=== PATIENT | male | born 1945 | race Caucasian/White ===

== ENCOUNTER → 2016-05-02 | Outpatient (CLI) | payer OTHER ==
[~2016-05-02] MED LIST: ALBU18002 INH; ALBU1AER9 INH; ALPR-411 PO; ASPI325T45 PO; BUPRTAB PO; BUPRTAB51 PO; CIPR-255 PO; CRD4 PO; CRS/10 PO; DAPT500I IV; DOCU-94 PO; FLUT0.15 NAE; GABA-113 PO; GLIP-199 PO; HYDR-5688 PO; LEVO75TA5 PO; LOSA50TA6 PO; LOSARTAN PO; METF-384 PO; MULT-506 PO; NTRGSL/4 SL; ONDA4TAB10 SL; PHEN-775 PO; TRAM-10 PO; VTMD PO; Vitamin D2 PO; ZOCOR PO; ZOLP5TAB PO
--- NOTE | 2016-05-02 16:23 | DIAGNOSTIC IMAGING REPORT ---
RIGHT SHOULDER 3 VIEWS HISTORY: RIGHT SHOULDER PAIN Right COMPARISON: None. FINDINGS: There is no fracture or dislocation. Small amount calcification at the distal supraspinatus tendon. There is mild cartilage space narrowing at the glenohumeral joint. The right clavicle appears intact. The AC joint is well aligned. No radiopaque foreign bodies. IMPRESSION: 1. No acute fracture or dislocation within the right shoulder. 2. Supraspinatus calcific tendinitis. 3. 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 05/02/2016 4:21 PM Dictated Date/Time: 05/02/2016 4:19 PM
== END | disposition home or self-care (01) ==
LOC: C.RDSM 14:55
PROVIDERS: ATTEND Physical Medicine & Rehabilitation Sports Medicine
DX: R52 Pain, unspecified (principal)

== ENCOUNTER → 2016-06-05 | Outpatient (CLI) | payer OTHER ==
[~2016-06-05] MED LIST changes: +MAGNEVIST IV PRN
--- NOTE | 2016-06-05 12:07 | DIAGNOSTIC IMAGING REPORT ---
FLUOROSCOPIC GUIDED RIGHT SHOULDER ARTHROGRAM FLUOROSCOPY TIME: 7 seconds. A single image submitted. HISTORY: Right shoulder pain.. PROCEDURE: After obtaining written informed consent, the patient was placed supine on the fluoroscopy table. A suitable site for needle insertion was marked using fluoroscopic guidance. The right shoulder was prepped and draped in the usual sterile fashion. 1% lidocaine was used for skin, subcutaneous and deep soft tissue anesthesia. Under intermittent fluoroscopic guidance, a 22 gauge 2.5 inch spinal needle was inserted into the right glenohumeral joint. A total of 14 cc of one-to-one mixture of dilute Magnevist (0.1 cc in 10 cc saline) and Optiray 300 were injected. The needle was then removed. There were no apparent complications. The patient was transported to for further imaging. IMPRESSION: Fluoroscopic-guided right shoulder arthrogram without immediate complication. Total injected volume was 14 cc. MR portion of the examination will be dictated separately. Electronically signed by: Ignacio Najera M.D. 06/05/2016 12:06 PM Dictated Date/Time: 06/05/2016 12:05 PM
--- NOTE | 2016-06-05 13:58 | DIAGNOSTIC IMAGING REPORT ---
RIGHT SHOULDER MRI with INTRA-ARTICULAR CONTRAST HISTORY: Right shoulder pain. R SHOULDER BICIPITAL TENDONITIS Right TECHNIQUE: Multiplanar multisequence MRI of the right shoulder was performed following the intra-articular injection of contrast. COMPARISON STUDY: Right shoulder 05/02/2016. FINDINGS: Suboptimal evaluation of the right shoulder due to motion artifact. This most pronounced on the sagittal sequences. AC joint: Contrast within the joint space due to the full-thickness rotator cuff tear. The acromioclavicular joint is well aligned. Rotator cuff: The subscapularis tendon appears to be grossly intact. The teres minor tendon is also likely intact. Full-thickness tear throughout the supraspinatus tendon which demonstrates up to 1.5 cm of retraction. There is mild fatty atrophy of the supraspinatus muscle. The infraspinatus tendon is not well evaluated due to motion artifact. There is likely a partial undersurface tear involving the majority of the infraspinatus tendon. There is contrast seen within the subacromial/subdeltoid space due to the full-thickness rotator cuff tear. Labrum: Diffusely truncated and abnormal appearing labrum consistent with a circumferential tear. Biceps tendon: The long head of the biceps tendon is not well-visualized due to motion artifact but appears to be completely torn and retracted into the proximal bicipital groove. Bones: No fracture or dislocation. Cartilage: Mild cartilage thinning within the humeral head and glenoid. IMPRESSION: 1. Overall, difficult evaluation of the right shoulder due to motion artifact. 2. There is a large full-thickness tear within the supraspinatus tendon which demonstrates up to 1.5 cm of retraction. There is mild fatty atrophy of the supraspinatus muscle. 3. Probable partial undersurface tear involving the majority of the infraspinatus tendon. 4. Diffusely abnormal labrum consistent with a circumferential tear. 5. The proximal long head of the biceps tendon is not well-visualized and is likely torn and retracted into the proximal bicipital groove. Electronically signed by: Ignacio Najera M.D. 06/05/2016 1:56 PM Dictated Date/Time: 06/05/2016 1:46 PM
== END | disposition home or self-care (01) ==
LOC: C.MRIBC 10:49
PROVIDERS: ATTEND Physical Medicine & Rehabilitation Sports Medicine
DX: S46.091D Other injury of muscle(s) and tendon(s) of the rotator cuff of right shoulder, subsequent encounter (principal); X58.XXXD Exposure to other specified factors, subsequent encounter; M75.41 Impingement syndrome of right shoulder; M75.21 Bicipital tendinitis, right shoulder; S46.011A Strain of muscle(s) and tendon(s) of the rotator cuff of right shoulder, initial encounter; X58.XXXA Exposure to other specified factors, initial encounter

== ENCOUNTER → 2016-07-31 | Outpatient (CLI) | payer OTHER ==
[~2016-07-31] MED LIST changes: -MAGNEVIST IV PRN; -TRAM-10 PO; -ZOCOR PO
--- NOTE | 2016-07-31 15:12 | DIAGNOSTIC IMAGING REPORT ---
LEFT HIP UNILATERAL 2 VIEWS CLINICAL HISTORY: Bilateral hip pain. COMPARISON: None FINDINGS: Alignment of left hip is anatomic. There is no fracture or suspicious lesion. Joint space is preserved. There is mild osteophytosis. Calcific density adjacent to the greater trochanter is due to muscular insertion. IMPRESSION: 1. No acute fracture. 2. Preserved left hip joint space with mild osteophytosis. Electronically signed by: Isaías Queen M.D. 07/31/2016 3:10 PM Dictated Date/Time: 07/31/2016 3:09 PM
--- NOTE | 2016-07-31 15:13 | DIAGNOSTIC IMAGING REPORT ---
RIGHT HIP UNILATERAL 2 VIEWS CLINICAL HISTORY: Bilateral hip pain. COMPARISON: None FINDINGS: Alignment of the right hip is anatomic. There is no fracture. Joint space is preserved. There is mild osteophytosis. Calcific density adjacent to the greater trochanter is due to muscular insertion. A vague calcific density projecting inferior to the right hip joint space is of doubtful significance. Spinal hardware is partially imaged. IMPRESSION: 1. No acute fracture. 2. Preserved right hip joint space with mild osteophytosis. Electronically signed by: Isaías Queen M.D. 07/31/2016 3:11 PM Dictated Date/Time: 07/31/2016 3:10 PM
--- NOTE | 2016-07-31 15:29 | DIAGNOSTIC IMAGING REPORT ---
KUB CLINICAL HISTORY: Flank pain and hematuria. FINDINGS: 2 AP supine abdominal radiographs are obtained. No prior studies are available for comparison at the time of dictation. There is a nonobstructed abdominal bowel gas pattern noting mild to moderate colonic fecal retention. No evidence of intraperitoneal free air is seen on this supine examination. There is no radiographic evidence of nephrolithiasis. The skeletal structures are osteopenic. There is advanced lumbosacral spondylosis with evidence of L4-S1 spinal fusion. IMPRESSION: No acute abnormality is identified. There is no radiographic evidence of nephrolithiasis. Electronically signed by: Lane Sathl M.D. 07/31/2016 3:27 PM Dictated Date/Time: 07/31/2016 3:26 PM
== END | disposition home or self-care (01) ==
LOC: C.RADBC 14:24
PROVIDERS: ATTEND Physician Assistant
DX: M25.551 Pain in right hip (principal); M25.552 Pain in left hip; R10.9 Unspecified abdominal pain; R31.9 Hematuria, unspecified

== ENCOUNTER → 2016-08-09 | Outpatient (CLI) | payer OTHER ==
--- NOTE | 2016-08-09 08:01 | DIAGNOSTIC IMAGING REPORT ---
EXAMINATION: RENAL ULTRASOUND CLINICAL HISTORY: HEMATURIA COMPARISON STUDY: None FINDINGS: The right kidney measures 13 cm. The left kidney measures 12.4 cm. There is no evidence of hydronephrosis. There is a 5 mm mid pole echogenic focus possibly representing a calculus. There is a 13 mm left renal cyst versus dilated calyx. There is borderline bladder wall thickening. Bilateral renal jets were visualized. IMPRESSION : 1. Equivocal 5 mm right renal calculus 2. 13 mm left renal cyst versus dilated calyx 3. Borderline bladder wall thickening Electronically signed by: Jairo Kenny M.D. 08/09/2016 7:59 AM Dictated Date/Time: 08/09/2016 7:57 AM
== END | disposition home or self-care (01) ==
LOC: C.ULTR 06:42
PROVIDERS: ATTEND Nurse Practitioner Family
DX: R31.9 Hematuria, unspecified (principal); N20.0 Calculus of kidney; N32.9 Bladder disorder, unspecified

== ENCOUNTER → 2016-08-19 | Outpatient (CLI) | payer OTHER ==
[2016-08-19 18:44] LABS: BLOOD UREA NITROGEN 21 mg/dl (7-18); BUN/CREATININE RATIO 17.8 (10-20)
== END | disposition home or self-care (01) ==
LOC: C.LAB 17:02
PROVIDERS: ATTEND Nurse Practitioner Family
DX: R31.0 Gross hematuria (principal)

== ENCOUNTER 2016-08-20 16:12 | Emergency (ER) | payer OTHER ==
[~2016-08-20] VITALS: Ht 170.2 cm; Wt 94.7 kg
[~2016-08-20 16:12] MED LIST changes: -ALBU18002 INH; -BUPRTAB PO; -BUPRTAB51 PO; -CIPR-255 PO; -DAPT500I IV; -DOCU-94 PO; -HYDR-5688 PO; -LOSA50TA6 PO; -ONDA4TAB10 SL; -PHEN-775 PO; -VTMD PO
[2016-08-20 16:14] VITALS: TEMP 36.5; Ht 170.2 cm; Wt 94.7 kg
[2016-08-20] MEDS ORDERED: SODIUM CHLORIDE 0.9% 1000ML 1,000 ML IV STA (16:28)
[2016-08-20] MEDS ORDERED: ONDANSETRON 8 MG/54 ML D5W IV STA (16:28)
[2016-08-20] MEDS: HYDROmorphone INJ 1 MG/ML SYR IV PRN ×2 (16:51→18:09)
[2016-08-20 17:02] LABS: MANUAL MICROSCOPIC REQUIRED? NO; REVIEW REQ? NO; URINE APPEARANCE CLEAR (CLEAR); URINE BILIRUBIN NEG (NEG); URINE COLOR YELLOW; URINE EPITHELIAL CELL AUTO 0-5 /lpf (0-5); URINE NITRITE NEG (NEG); URINE SPECIFIC GRAVITY 1.021 (1.000-1.030); UROBILINOGEN NEG (NEG)
[2016-08-20 17:14] LABS: COMPLETE YES; EOS % 1.5 %; HEMATOCRIT 43.2 % (42-52); IG% 0.3 %; LYMPH % 11.9 %; LYMPH ABS # 1.19 K/uL (1.2-3.4); MEAN CELL VOLUME 96.2 fL (80-100); MEAN CORPUSCULAR HEMOGLOBIN 31.4 pg (25-34); MEAN CORPUSCULAR HGB CONC 32.6 g/dl (32-36); MONO % 8.2 %; NEUT % 78.1 %; PLATELET COUNT 241 K/uL (130-400); RED BLOOD COUNT 4.49 M/uL (4.7-6.1); WHITE BLOOD COUNT 9.98 K/uL (4.8-10.8)
[2016-08-20 17:31] LABS: ALT/SGPT 34 U/L (12-78); BLOOD UREA NITROGEN 19 mg/dl (7-18); BUN/CREATININE RATIO 13.4 (10-20); CALCIUM 9.6 mg/dl (8.5-10.1); CARBON DIOXIDE 30 mmol/L (21-32); CHLORIDE 105 mmol/L (98-107); GLUCOSE 176 mg/dl (70-99); POTASSIUM 4.6 mmol/L (3.5-5.1); SODIUM 141 mmol/L (136-145)
[2016-08-20 17:34] LABS: ALKALINE PHOSPHATASE 29 U/L (45-117); AST/SGOT 24 U/L (15-37)
--- NOTE | 2016-08-20 18:00 | DIAGNOSTIC IMAGING REPORT ---
CT OF THE ABDOMEN AND PELVIS WITHOUT CONTRAST, STONE PROTOCOL CLINICAL HISTORY: Right flank pain. COMPARISON STUDY: KUB July 31, 2016 and renal ultrasound August 09, 2016. TECHNIQUE: Helical axial images of the abdomen and pelvis were obtained without IV or oral contrast according to renal stone protocol. FINDINGS: A 7 mm right ureteropelvic junction calculus results in mild right hydronephrosis. There small bilateral renal calculi which measure up to 4 mm. There are no left ureteral calculi. The heart is mildly enlarged. Unenhanced images of the liver, spleen, adrenal glands and pancreas normal. There is extensive sigmoid diverticulosis without evidence for acute diverticulitis. There is no lymphadenopathy. There is a suspected fat-containing left inguinal hernia. No suspicious osseous lesions are present. There are post surgical findings within the spine. IMPRESSION: 1. 7 mm right ureteropelvic junction calculus which results in mild right hydronephrosis. 2. Bilateral nephrolithiasis. 3. Extensive colonic diverticulosis without evidence for acute diverticulitis. Electronically signed by: Isaías Queen M.D. 08/20/2016 5:22 PM Dictated Date/Time: 08/20/2016 5:18 PM
[2016-08-20] MEDS ORDERED: ONDANSETRON HOME PACK 4MG OD TAB PO ONE (20:00)
[2016-08-20] MEDS ORDERED: NORCO 5/325MG HOME PACK PO ONE (20:00)
[2016-08-20] MEDS ORDERED: ONDA4TAB10 SL (20:14)
[2016-08-20] MEDS ORDERED: HYDR-5688 PO (20:14)
[2016-08-20 20:22] VITALS: BP 155/87; PULSE 67; O2SAT 96
--- NOTE | 2016-08-21 00:32 | EMERGENCY ROOM VISIT NOTE ---
History Report prepared by Ervin: Audrey Rosas Under the Supervision of: Dr. Maximo Schmitz M.D. First contact with patient: 16:19 Chief Complaint: PAIN (GENERALIZED) Stated Complaint: PAIN IN RIGHT SIDE, VOMITTING History of Present Illness The patient is a 70 year old male who presents to the Emergency Room with complaints of worsening right side pain starting a few hours ago. The patient states he was driving and the pain came on suddenly. He states that he came to the ED because it continued to worsen. The patient states that he has a history of kidney stones. He notes that recently he has had blood in his urine and saw his urologist yesterday. He notes that he was scheduled for a cat scan in two days. He complains of nausea and vomiting. He rates his pain as a 6/10 in severity. Pt denies LOC, headache, fevers, chills, diaphoresis, visual changes, neck pain, chest pain, breathing difficulties, back pain, melena, hematochezia, numbness, weakness, lymphadenopathy, rash, or other complaints. The patient notes that he had a heart attack at the age of 44. He reports that they completed an angioplasty, but no stent. Source of History: patient Onset: few hours ago Position: other (right flank) Symptom Intensity: 6/10 Timing: worsening Associated Symptoms: + nausea, + urinary symptoms, + vomiting Review of Systems See HPI for pertinent positives and negatives. A total of ten systems were reviewed and were otherwise negative. Past Medical & Surgical Medical Problems: (1) CAD (coronary artery disease) (2) Diabetes (3) Idiopathic stricture of urethra (4) S/P lumbar spinal fusion (5) Urethral stricture Surgical Problems: (1) H/O angioplasty Family History No pertinent family history Social History Smoking Status: Former Smoker Marital Status: Housing Status: lives with significant other Current/Historical Medications Scheduled Aspirin (Aspirin), 325 MG PO DAILY Doxazosin Mesylate (Doxazosin Mesylate), 1 TAB PO DAILY Fluticasone Propionate (Nasal) (Flonase Allergy Relief), 1 SPRAY CHUCKY PRN Gabapentin (Neurontin), 300 MG PO BID Glipizide (Glipizide Er), 1 TAB PO BID Levothyroxine Sodium (Levothyroxine Sodium), 1 TAB PO DAILY Metformin Hcl (Glucophage), 1,000 MG PO BID Multivitamin (Multivitamin), 1 TAB PO DAILY Nitroglycerin (Nitrostat), 1 TAB SL UD Ondasetron Odt (Zofran Odt), 4 MG SL Q6H Rosuvastatin Calcium (Crestor), 1 TAB PO DAILY [Losartan], 50 MG PO DAILY [Vitamin D2], 50,000 INTER.UNIT PO WEEKLY Scheduled PRN Albuterol (Proair Hfa), 2 PUFFS INH Q4 PRN for prn Alprazolam (Xanax), 0.5 MG PO TID PRN for prn Hydrocodone/Acetaminophen 5MG/325MG (Brent 5MG/325MG), 1-2 TABS PO Q6H PRN for Pain Zolpidem Tartrate (Ambien), 10 MG PO HS PRN for Sleep Allergies Coded Allergies: Codeine (Unverified Allergy, Unknown, GI SYMPTOMS, 08/20/16) Sitagliptin (Unverified Allergy, Unknown, GI SYMPTOMS, 08/20/16) Physical Exam Vital Signs Date Time Temp Pulse Resp B/P Pulse Ox O2 Delivery O2 Flow Rate FiO2 08/20/16 20:22 67 16 155/87 96 08/20/16 18:48 66 16 116/73 97 Room Air 08/20/16 17:38 70 08/20/16 17:25 72 16 160/81 96 Room Air 08/20/16 16:14 36.5 88 20 164/84 98 Room Air Physical Exam GENERAL: Awake, alert, patient appears uncomfortable, in no distress HENT: Normocephalic, atraumatic. Oropharynx unremarkable. EYES: Normal conjunctiva. Sclera non-icteric. NECK: Supple. No nuchal rigidity. FROM. No JVD. RESPIRATORY: Clear to auscultation. CARDIAC: Regular rate, normal rhythm. Extremities warm and well perfused. Pulses equal. ABDOMEN: Soft, non-distended. RLQ tenderness to palpation. No rebound or guarding. No masses. RECTAL: Deferred. MUSCULOSKELETAL: Chest examination reveals no tenderness. The back is symmetrical on inspection without obvious abnormality. There is no CVA tenderness to palpation. No joint edema. LOWER EXTREMITIES: Calves are equal size bilaterally and non-tender. No edema. No discoloration. NEURO: Normal sensorium. No sensory or motor deficits noted. SKIN: No rash or jaundice noted. Medical Decision & Procedures ER Provider Diagnostic Interpretation: Radiology results as stated below per my review and radiologist interpretation: CT OF THE ABDOMEN AND PELVIS WITHOUT CONTRAST, STONE PROTOCOL CLINICAL HISTORY: Right flank pain. COMPARISON STUDY: KUB July 31, 2016 and renal ultrasound August 09, 2016. TECHNIQUE: Helical axial images of the abdomen and pelvis were obtained without IV or oral contrast according to renal stone protocol. FINDINGS: A 7 mm right ureteropelvic junction calculus results in mild right hydronephrosis. There small bilateral renal calculi which measure up to 4 mm. There are no left ureteral calculi. The heart is mildly enlarged. Unenhanced images of the liver, spleen, adrenal glands and pancreas normal. There is extensive sigmoid diverticulosis without evidence for acute diverticulitis. There is no lymphadenopathy. There is a suspected fat-containing left inguinal hernia. No suspicious osseous lesions are present. There are post surgical findings within the spine. IMPRESSION: 1. 7 mm right ureteropelvic junction calculus which results in mild right hydronephrosis. 2. Bilateral nephrolithiasis. 3. Extensive colonic diverticulosis without evidence for acute diverticulitis. Electronically signed by: Isaías Queen M.D. 08/20/2016 5:22 PM Dictated Date/Time: 08/20/2016 5:18 PM Laboratory Results 08/20/16 16:50 Red Blood Count 4.49, Mean Corpuscular Volume 96.2, Mean Corpuscular Hemoglobin 31.4, Mean Corpuscular Hemoglobin Concent 32.6, Mean Platelet Volume 10.0, Neutrophils (%) (Auto) 78.1, Lymphocytes (%) (Auto) 11.9, Monocytes (%) (Auto) 8.2, Eosinophils (%) (Auto) 1.5, Basophils (%) (Auto) 0.0, Neutrophils # (Auto) 7.79, Lymphocytes # (Auto) 1.19, Monocytes # (Auto) 0.82, Eosinophils # (Auto) 0.15, Basophils # (Auto) 0.00 08/20/16 16:50 Test 08/20/16 16:30 08/20/16 16:50 Urine Color YELLOW Urine Appearance CLEAR (CLEAR) Urine pH 5.0 (4.5-7.5) Urine Specific [place] 1.021 (1.000-1.030) Urine Protein NEG (NEG) Urine Glucose (UA) NEG (NEG) Urine Ketones NEG (NEG) Urine Occult Blood 3+ (NEG) Urine Nitrite NEG (NEG) Urine Bilirubin NEG (NEG) Urine Urobilinogen NEG (NEG) Urine Leukocyte Esterase NEG (NEG) Urine WBC (Auto) 1-5 /hpf (0-5) Urine RBC (Auto) 10-30 /hpf (0-4) Urine Hyaline Casts (Auto) 1-5 /lpf (0-5) Urine Epithelial Cells (Auto) 0-5 /lpf (0-5) Urine Bacteria (Auto) NEG (NEG) White Blood Count 9.98 K/uL (4.8-10.8) Red Blood Count 4.49 M/uL (4.7-6.1) Hemoglobin 14.1 g/dL (14.0-18.0) Hematocrit 43.2 % (42-52) Mean Corpuscular Volume 96.2 fL (80-100) Mean Corpuscular Hemoglobin 31.4 pg (25-34) Mean Corpuscular Hemoglobin Concent 32.6 g/dl (32-36) Platelet Count 241 K/uL (130-400) Mean Platelet Volume 10.0 fL (7.4-10.4) Neutrophils (%) (Auto) 78.1 % Lymphocytes (%) (Auto) 11.9 % Monocytes (%) (Auto) 8.2 % Eosinophils (%) (Auto) 1.5 % Basophils (%) (Auto) 0.0 % Neutrophils # (Auto) 7.79 K/uL (1.4-6.5) Lymphocytes # (Auto) 1.19 K/uL (1.2-3.4) Monocytes # (Auto) 0.82 K/uL (0.11-0.59) Eosinophils # (Auto) 0.15 K/uL (0-0.5) Basophils # (Auto) 0.00 K/uL (0-0.2) RDW Standard Deviation 46.8 fL (36.4-46.3) RDW Coefficient of Variation 13.3 % (11.5-14.5) Immature Granulocyte % (Auto) 0.3 % Immature Granulocyte # (Auto) 0.03 K/uL (0.00-0.02) Anion Gap 6.0 mmol/L (3-11) Est Creatinine Clear Calc Drug Dose 52.3 ml/min Estimated GFR () 57.8 Estimated GFR (Non- 49.8 BUN/Creatinine Ratio 13.4 (10-20) Calcium Level 9.6 mg/dl (8.5-10.1) Total Bilirubin 0.2 mg/dl (0.2-1) Direct Bilirubin < 0.1 mg/dl (0-0.2) Aspartate Amino Transf (AST/SGOT) 24 U/L (15-37) Alanine Aminotransferase (ALT/SGPT) 34 U/L (12-78) Alkaline Phosphatase 29 U/L (45-117) Total Protein 8.1 gm/dl (6.4-8.2) Albumin 4.1 gm/dl (3.4-5.0) Lipase 83 U/L (73-393) Laboratory results reviewed by me Medications Administered Medications (Trade) Dose Ordered Sig/Sherry Route Start Time Stop Time Status Last Admin Dose Admin Ondansetron HCl 8 mg 8 mg NOW STAT IV 08/20/16 16:28 08/20/16 16:30 DC 08/20/16 16:51 8 MG Sodium Chloride (Nss 1000ml) 1,000 ml @ 200 mls/hr Q5H STAT IV 08/20/16 16:28 08/20/16 20:43 DC 08/20/16 16:51 200 MLS/HR Hydromorphone HCl (Dilaudid Inj) 0.5 mg Q15M PRN IV 08/20/16 16:30 08/20/16 20:43 DC 08/20/16 18:09 0.5 MG Acetaminophen/ Hydrocodone Bitart (Brent 5/325mg Home Pack) 1 homepack UD ONCE PO 08/20/16 20:00 08/20/16 20:01 DC 08/20/16 19:59 1 HOMEPACK Ondansetron HCl (ZOFRAN ODT 4MG Home Pack) 1 homepack UD ONCE PO 08/20/16 20:00 08/20/16 20:01 DC 08/20/16 19:59 1 HOMEPACK ED Course 1625: The patient was evaluated in room A12. A complete history and physical exam was performed. 1628: Ordered NSS 1000 ml @ 200 mls/hr, Zofran 8mg IV. 1630: Ordered Dilaudid Inj 0.5 mg PRN IV pain. 1715: I reevaluated the patient and he is feeling a lot better. He states that his pain has improved. 1943: I reevaluated the patient and he is feeling better. Discussed results and discharge instructions: He verbalized understanding and agreement. The patient is ready for discharge. 1999: Ordered Ondansetron HCl 1 homepack PO, Brent 5/325 mg Home Pack 1 homepack PO. Medical Decision Triage Nursing notes reviewed. The patient's presentation and history were concerning for flank pain and hematuria. Etiologies such as renal colic, appendicitis, diverticulitis, mesenteric ischemia, aortic pathology, infections, inflammatory bowel disease, PUD, biliary pathology, UTI, as well as others were entertained. The patient was evaluated. He was mildly tender in the right lower quadrant but complained of right flank pain and hematuria. He is scheduled for CT imaging. An outpatient ultrasound suggested bladder wall thickening but also a possible calculus. The patient did request analgesia. He was given Dilaudid and Zofran. The patient was sent to CT for imaging. Blood work was obtained and sent. The patient's CBC, chem panel, LFTs, and lipase were unremarkable. Urinalysis did show hematuria but no sign of infection. CT imaging didn't show the patient has a 7 mm right-sided ureteral stone. This is the likely cause of the patient's symptoms and signs. He felt significantly better after the medication received. I discussed conservative management with close follow-up with his urologist. I gave my usual and customary discussion regarding this issue. By the evaluation outlined above other emergent etiologies such as those listed in the differential, as well as others, were deemed relatively unlikely. The patient and were informed about the findings as listed above. All questions were answered and they were pleased with the treatment. Return instructions were outlined and the patient was discharged in stable condition. The patient was referred to urology for follow-up for a recheck of the current condition. The chart was completed utilizing [employer] voice recognition software. Grammatical errors, random word insertions, pronoun errors, and incomplete sentences are an occasional consequence of this system due to software limitations, ambient noise, and hardware issues. Any formal questions or concerns about the content, text, or information contained within the body of this dictation should be directly addressed to the physician for clarification. [place] Drug Monitoring Program Search Results: no issues identified Impression Primary Impression: Kidney stone Scribe Attestation The scribe's documentation has been prepared under my direction and personally reviewed by me in its entirety. I confirm that the note above accurately reflects all work, treatment, procedures, and medical decision making performed by me. Departure Information Dispostion Home / Self-Care Prescriptions Ondasetron Odt (ZOFRAN ODT) 4 Mg Tab 4 MG SL Q6H for Nausea, #10 TAB Prov: Maximo Schmitz MD 08/20/16 Hydrocodone/Acetaminophen 5MG/325MG (Brent 5MG/325MG) Tab 1-2 TABS PO Q6H Y for Pain, #20 TAB Prov: Maximo Schmitz MD 08/20/16 Referrals Oumar Culp M.D. (PCP) Forms HOME CARE DOCUMENTATION FORM, IMPORTANT VISIT INFORMATION Patient Instructions My [facility] Additional Instructions KIDNEY STONE INSTRUCTIONS: Hydrocodone/acetaminophen 5/325mg: Take 1-2 pills every 6 hours as needed for pain. Avoid additional Acetaminophen/Tylenol, alcohol, operating machinery or dangerous equipment, working on ladders or roofs, DRIVING, or situations where being under the influence may be dangerous. It is recommended to use a stool softener such as Colace, 100mg twice daily while taking this medication to avoid constipation. Zofran 4 mg oral dissolving tablets: take one tablet and allow it to melt in your mouth every 4 hours as needed for nausea. Strain your urine and collect all the stones or debris for the urologists. Rest and avoid strenuous activity until your stone passes and symptoms resolve. Drink plenty of fluids. Return to the ER for worsening abdominal or back pain, vomiting, fevers, passing out, or as needed. Follow up with [facility] tomorrow, [phone], to arrange a visit. Tell the elementary secretary or nurse that you were in the Emergency Room and a CT scan was performed and you have a right sided 7 mm stone in the ureter, a urine tube from the kidney to the bladder. He had some blood in the urine but no signs of infection. Your kidney function and electrolytes were normal. If there are any difficulties in obtaining follow-up please call back to the emergency department at [phone] for assistance.
[2016-08-22] MEDS ORDERED: ALBU18002 INH (00:19)
[2016-08-22] MEDS ORDERED: HYDR-5688 PO (00:21)
[2016-08-22] MEDS ORDERED: LOSA50TA6 PO (00:24)
[2016-08-22] MEDS ORDERED: VTMD PO (00:26)
[2016-08-22] MEDS ORDERED: ONDA4TAB10 SL (00:27)
[2016-08-22] MEDS ORDERED: BUPRTAB51 PO (10:14)
[2016-08-22] MEDS ORDERED: DOCU-94 PO (13:06)
[2016-08-22] MEDS ORDERED: PHEN-775 PO (13:06)
[2016-08-22] MEDS ORDERED: CIPR-255 PO (13:06)
[2016-09-09] MEDS ORDERED: DAPT500I IV (16:47)
[2016-09-10] MEDS ORDERED: BUPRTAB PO (11:57)
== END 2016-08-20 20:23 | disposition home or self-care (01) ==
LOC: C.EDB 16:12 → C.EDA 20:23
DX: N20.0 Calculus of kidney (principal); R11.2 Nausea with vomiting, unspecified; I25.10 Atherosclerotic heart disease of native coronary artery without angina pectoris; I10 Essential (primary) hypertension; E11.9 Type 2 diabetes mellitus without complications; Z79.82 Long term (current) use of aspirin; Z79.84 Long term (current) use of oral hypoglycemic drugs; Z79.899 Other long term (current) drug therapy; Z87.891 Personal history of nicotine dependence; Z98.1 Arthrodesis status; Z98.62 Peripheral vascular angioplasty status

== ENCOUNTER → 2016-08-21 | Outpatient (CLI) | payer OTHER ==
[~2016-08-21] MED LIST changes: +ALBU18002 INH; +BUPRTAB PO; +BUPRTAB51 PO; +CIPR-255 PO; +DAPT500I IV; +DOCU-94 PO; +HYDR-5688 PO; +LOSA50TA6 PO; +ONDA4TAB10 SL; +PHEN-775 PO; +VTMD PO
--- NOTE | 2016-08-21 15:20 | DIAGNOSTIC IMAGING REPORT ---
CHEST 2 VIEWS ROUTINE CLINICAL HISTORY: N20.0 [id number] PREOPERATIVE CHEST COMPARISON STUDY: No previous studies for comparison. FINDINGS: The heart is at the upper limits of normal in size. There is mild aortic tortuosity/ectasia. There is no failure. There is no focal pulmonary consolidation. There are no pleural effusions.[ IMPRESSION: No active disease in the chest. Electronically signed by: Jairo Kenny M.D. 08/21/2016 3:19 PM Dictated Date/Time: 08/21/2016 3:19 PM
== END | disposition home or self-care (01) ==
LOC: C.RAD 14:55
PROVIDERS: ATTEND Nurse Practitioner Family
DX: N20.0 Calculus of kidney (principal)

== ENCOUNTER 2016-09-04 20:48 | Inpatient (IN) | payer OTHER ==
[~2016-09-04] VITALS: Ht 170.2 cm; Wt 90.7 kg
[~2016-09-04 20:48] MED LIST changes: -ALBU1AER9 INH; -BUPRTAB PO; -DAPT500I IV; -LOSARTAN PO; -PHEN-775 PO; -Vitamin D2 PO
[2016-09-04] MEDS ORDERED: ONDANSETRON INJ 2 MG/ML 2 ML VIAL IV STA ×2 (21:50→23:10)
[2016-09-04 21:59] LABS: BASO % 0.1 %; BASO ABS # 0.01 K/uL (0-0.2); COMPLETE YES; EOS % 1.1 %; HEMATOCRIT 37.3 % (42-52); IG% 0.5 %; LYMPH % 14.3 %; LYMPH ABS # 1.74 K/uL (1.2-3.4); MEAN CELL VOLUME 94.4 fL (80-100); MEAN CORPUSCULAR HEMOGLOBIN 30.9 pg (25-34); MEAN CORPUSCULAR HGB CONC 32.7 g/dl (32-36); MEAN PLATELET VOLUME 9.5 fL (7.4-10.4); MONO % 10.9 %; NEUT % 73.1 %; PLATELET COUNT 294 K/uL (130-400); RED BLOOD COUNT 3.95 M/uL (4.7-6.1); WHITE BLOOD COUNT 12.18 K/uL (4.8-10.8)
[2016-09-04 22:01] LABS: URINE APPEARANCE TURBID (CLEAR); URINE COLOR ORANGE; URINE EPITHELIAL CELL AUTO >30 /lpf (0-5); URINE NITRITE POS (NEG); URINE PH 5.5 (4.5-7.5); URINE SPECIFIC GRAVITY 1.021 (1.000-1.030); UROBILINOGEN NEG (NEG)
--- NOTE | 2016-09-04 22:02 | EMERGENCY ROOM VISIT NOTE ---
History Report prepared by Ervin: Nellie Ortiz Under the Supervision of: Dr. Titus Urena D.O. First contact with patient: 21:38 Chief Complaint: FEVER Stated Complaint: FEVER S/P LITHOTRIPSY History of Present Illness The patient is a 71 year old male who presents to the Emergency Room with complaints of an intermittent fever starting 4 days ago. He had a ureteral stent placed on August 20. The patient had a lithotripsy by Dr. Mckeon for a 7 mm kidney stone on August 23 but had been at baseline until 4 days ago. His highest temperature was 102.4 degrees Fahrenheit. He has been taking Tylenol and Aspirin with some relief. He currently complains of tiredness, generalized weakness, and nausea but denies vomiting. He has been taking Pyridium which has caused his urine to become orange but he otherwise denies any urinary symptoms. He denies any recent cough, cold, congestion, or any other complaints. Source of History: patient Onset: 4 days ago Position: other (global) Quality: other (weakness) Timing: intermittent Modifying Factors (Relieving): other (Tylenol and Aspirin with some relief) Associated Symptoms: + nausea, + weakness, No cough, No urinary symptoms, No vomiting Review of Systems See HPI for pertinent positives and negatives. A total of ten systems were reviewed and were otherwise negative. Past Medical & Surgical Medical Problems: (1) CAD (coronary artery disease) (2) Diabetes (3) Idiopathic stricture of urethra (4) S/P lumbar spinal fusion (5) Urethral stricture Surgical Problems: (1) H/O angioplasty Family History No pertinent family history Social History Smoking Status: Never Smoker Marital Status: Housing Status: lives with significant other Occupation Status: retired Current/Historical Medications Scheduled Aspirin (Aspirin), 325 MG PO DAILY Bupropion (Wellbutrin-Xl), 300 MG PO BID Docusate Sodium (Colace), 1 CAP PO BID Doxazosin Mesylate (Doxazosin Mesylate), 4 MG PO DAILY Ergocalciferol (Vitamin D), 50,000 INTER.UNIT PO WK Fluticasone Propionate (Nasal) (Flonase Allergy Relief), 1 SPRAY CHUCKY PRN Gabapentin (Neurontin), 300 MG PO BID Glipizide (Glipizide Er), 10 MG PO BID Levothyroxine Sodium (Levothyroxine Sodium), 75 MCG PO DAILY Losartan Potassium (Cozaar), 50 MG PO DAILY Metformin Hcl (Glucophage), 1,000 MG PO BID Multivitamin (Multivitamin), 1 TAB PO DAILY Nitroglycerin (Nitrostat), 1 TAB SL UD Rosuvastatin Calcium (Crestor), 10 MG PO DAILY Zolpidem Tartrate (Ambien), 10 MG PO HS Scheduled PRN Albuterol Sulfate (Proair Respiclick), 2 PUFF INH Q4 PRN for Shortness of Breath Alprazolam (Xanax), 0.5 MG PO TID PRN for prn Hydrocodone/Acetaminophen 5MG/325MG ([place] 5MG/325MG), 1-2 TABLETS PO Q6 PRN for Pain Ondasetron Odt (Zofran Odt), 4 MG SL Q6H PRN for Nausea or Vomiting Allergies Coded Allergies: Codeine (Unverified Allergy, Unknown, GI SYMPTOMS, 08/22/16) Sitagliptin (Unverified Allergy, Unknown, GI SYMPTOMS, 08/22/16) Physical Exam Vital Signs Date Time Temp Pulse Resp B/P Pulse Ox O2 Delivery O2 Flow Rate FiO2 09/04/16 23:08 102/60 94 Room Air 09/04/16 22:45 91 20 09/04/16 22:26 95 09/04/16 22:17 97 Room Air 09/04/16 20:57 37.7 114 20 128/72 93 Room Air Physical Exam GENERAL: Awake, alert, well-appearing, in no distress HENT: Normocephalic, atraumatic. Oropharynx unremarkable. EYES: Normal conjunctiva. Sclera non-icteric. NECK: Supple. No nuchal rigidity. FROM. No JVD. RESPIRATORY: Clear to auscultation. CARDIAC: Regular rate, normal rhythm. Extremities warm and well perfused. Pulses equal. ABDOMEN: Soft, non-distended. No tenderness to palpation. No rebound or guarding. No masses. RECTAL: Deferred. MUSCULOSKELETAL: Chest examination reveals no tenderness. The back is symmetrical on inspection without obvious abnormality. There is no CVA tenderness to palpation. No joint edema. LOWER EXTREMITIES: Calves are equal size bilaterally and non-tender. No edema. No discoloration. NEURO: Normal sensorium. No sensory or motor deficits noted. SKIN: No rash or jaundice noted. Medical Decision & Procedures ER Provider Diagnostic Interpretation: CT: Radiology results as stated below per my review and radiologist interpretation CT ABDOMEN AND PELVIS Comparison 08/20. Interval placement of double-J right sided ureteral stent. The obstructive right proximal ureteral stone seen on the previous examination is no longer identified. Nonobstructive bilateral renal stones. No ureteral calculus is seen on the current examination. No hydronephrosis is seen. Nonspecific bilateral perinephric infiltration. No interval infiltrate is seen at lung bases. Suspected atelectasis and/or scar. Hiatal hernia again noted. No evidence for appendicitis. Diverticulosis without diverticulitis, postop changes of the spine, old granulomatous disease and other unchanged incidental findings. Radiologist: Naveen Gaming MD Laboratory Results 09/04/16 21:32 Red Blood Count 3.95, Mean Corpuscular Volume 94.4, Mean Corpuscular Hemoglobin 30.9, Mean Corpuscular Hemoglobin Concent 32.7, Mean Platelet Volume 9.5, Neutrophils (%) (Auto) 73.1, Lymphocytes (%) (Auto) 14.3, Monocytes (%) (Auto) 10.9, Eosinophils (%) (Auto) 1.1, Basophils (%) (Auto) 0.1, Neutrophils # (Auto ) 8.90, Lymphocytes # (Auto) 1.74, Monocytes # (Auto) 1.33, Eosinophils # (Auto ) 0.14, Basophils # (Auto) 0.01 09/04/16 21:32 Test 09/04/16 21:30 09/04/16 21:32 09/04/16 22:19 Urine Color ORANGE Urine Appearance TURBID (CLEAR) Urine pH 5.5 (4.5-7.5) Urine Specific [place] 1.021 (1.000-1.030) Urine Protein 2+ (NEG) Urine Glucose (UA) NEG (NEG) Urine Ketones NEG (NEG) Urine Occult Blood 3+ (NEG) Urine Nitrite POS (NEG) Urine Bilirubin 1+ (NEG) Urine Urobilinogen NEG (NEG) Urine Leukocyte Esterase LARGE (NEG) Urine WBC (Auto) >30 /hpf (0-5) Urine RBC (Auto) >30 /hpf (0-4) Urine Hyaline Casts (Auto) 5-10 /lpf (0-5) Urine Epithelial Cells (Auto) >30 /lpf (0-5) Urine Bacteria (Auto) 1+ (NEG) Urine Pathogenic Casts 0-3 GRANULAR CASTS /lpf (0) Urine Yeast (Auto) PRESENT (NONE PRSENT) White Blood Count 12.18 K/uL (4.8-10.8) Red Blood Count 3.95 M/uL (4.7-6.1) Hemoglobin 12.2 g/dL (14.0-18.0) Hematocrit 37.3 % (42-52) Mean Corpuscular Volume 94.4 fL (80-100) Mean Corpuscular Hemoglobin 30.9 pg (25-34) Mean Corpuscular Hemoglobin Concent 32.7 g/dl (32-36) Platelet Count 294 K/uL (130-400) Mean Platelet Volume 9.5 fL (7.4-10.4) Neutrophils (%) (Auto) 73.1 % Lymphocytes (%) (Auto) 14.3 % Monocytes (%) (Auto) 10.9 % Eosinophils (%) (Auto) 1.1 % Basophils (%) (Auto) 0.1 % Neutrophils # (Auto) 8.90 K/uL (1.4-6.5) Lymphocytes # (Auto) 1.74 K/uL (1.2-3.4) Monocytes # (Auto) 1.33 K/uL (0.11-0.59) Eosinophils # (Auto) 0.14 K/uL (0-0.5) Basophils # (Auto) 0.01 K/uL (0-0.2) RDW Standard Deviation 45.1 fL (36.4-46.3) RDW Coefficient of Variation 12.8 % (11.5-14.5) Immature Granulocyte % (Auto) 0.5 % Immature Granulocyte # (Auto) 0.06 K/uL (0.00-0.02) Anion Gap 7.0 mmol/L (3-11) Est Creatinine Clear Calc Drug Dose 44.2 ml/min Estimated GFR () 48.8 Estimated GFR (Non- 42.1 BUN/Creatinine Ratio 13.8 (10-20) Calcium Level 9.7 mg/dl (8.5-10.1) Total Bilirubin 0.3 mg/dl (0.2-1) Direct Bilirubin 0.1 mg/dl (0-0.2) Aspartate Amino Transf (AST/SGOT) 19 U/L (15-37) Alanine Aminotransferase (ALT/SGPT) 22 U/L (12-78) Alkaline Phosphatase 32 U/L (45-117) Total Protein 8.3 gm/dl (6.4-8.2) Albumin 3.3 gm/dl (3.4-5.0) Bedside Lactic Acid Venous 1.94 mmol/L (0.90-1.70) Laboratory results reviewed by me Medications Administered Medications (Trade) Dose Ordered Sig/Sherry Route Start Time Stop Time Status Last Admin Dose Admin Ondansetron HCl (Zofran Inj) 4 mg NOW STAT IV 09/04/16 21:50 09/04/16 21:51 DC 09/04/16 22:32 4 MG Ceftriaxone Sodium (Rocephin Inj) 1 gm NOW STAT IV 09/04/16 22:27 09/04/16 22:28 DC 09/04/16 22:32 1 GM Ondansetron HCl (Zofran Inj) 4 mg NOW STAT IV 09/04/16 23:10 09/04/16 23:11 DC 09/04/16 23:14 4 MG ECG Indication: other (fever) Rate (beats per minute): 99 Rhythm: sinus rhythm Findings: no acute ischemic change, left axis deviation ED Course 2137: The patient was evaluated in room C02B. A complete history and physical exam was performed. 2150: Zofran Inj 4 mg IV 2257: Rocephin Inj 1 gm IV 2310: Zofran Inj 4 mg IV 0008: I discussed the patient's case with Dr. Ying, from [facility]. 0010: I reevaluated the patient. His heart rate has decreased. The patient is not in septic shock. I discussed the test results and treatment plan with the patient. The patient will be evaluated for further management. Medical Decision Differential diagnosis includes but is not limited to UTI, ureteral lithiasis, pyelonephritis, early sepsis, metabolic derangement, viral syndrome Patient started on IV fluids IV Zofran IV Rocephin. Patient underwent CT imaging. Patient is exhibiting Sirs but no evidence of septic shock. Patient will be admitted to the hospitalist for further evaluation of urinary tract infection. I discussed the workup with the patient and the patient's at bedside. Consults Time Called: [phone]. Consulting Physician: Dr. Ying, from [facility] Returned Call: [phone] I discussed the patient's case with Dr. Ying, from [facility]. Impression Primary Impression: UTI (urinary tract infection) Additional Impression: SIRS (systemic inflammatory response syndrome) Scribe Attestation The scribe's documentation has been prepared under my direction and personally reviewed by me in its entirety. I confirm that the note above accurately reflects all work, treatment, procedures, and medical decision making performed by me. Departure Information Dispostion Being Evaluated By Hospitalist Referrals Oumar Culp M.D. (PCP) Patient Instructions [facility] Problem Qualifiers Primary Impression: UTI (urinary tract infection) Encounter type: initial encounter
[2016-09-04 22:06] LABS: BUN/CREATININE RATIO 13.8 (10-20); CREATININE 1.6 mg/dl (0.60-1.40); POTASSIUM 4.7 mmol/L (3.5-5.1)
[2016-09-04 22:10] LABS: MANUAL MICROSCOPIC REQUIRED? NO; REVIEW REQ? YES; URINE BILIRUBIN 1+ (NEG)
[2016-09-04 22:17] LABS: CALCIUM 9.7 mg/dl (8.5-10.1)
[2016-09-04 22:22] LABS: URINE PATH CASTS 0-3 GRANULAR CASTS /lpf (0)
[2016-09-04] MEDS ORDERED: CEFTRIAXONE SOD INJ 1 GM ADDVIAL IV STA (22:27)
[2016-09-05] VITALS (8 sets, daily range): BP systolic 122–162; BP diastolic 71–80; PULSE 86–104; TEMP 37.1–37.7; O2SAT 94–98; BMI 31.3
[2016-09-05] MEDS ORDERED: ACETAMINOPHEN IV 100 ML IV PRN (00:45)
[2016-09-05] MEDS ORDERED: MoRPHine SULFATE 2 MG/ML CARP IV PRN (00:45)
[2016-09-05] MEDS ORDERED: HYDROCODONE/ACETAMOPHEN 5/325MG TAB PO PRN (00:45)
[2016-09-05] MEDS ORDERED: ONDANSETRON INJ 2 MG/ML 2 ML VIAL IV PRN (00:45)
[2016-09-05] MEDS ORDERED: MoRPHine SULFATE 4 MG/ML 1 ML CARP\\VIAL IV PRN (00:45)
[2016-09-05] MEDS ORDERED: GLUCOSE 10 TABS/TUBE PO PRN ×2 (00:45)
[2016-09-05] MEDS ORDERED: NITROGLYCERIN 0.4 MG SL PER TAB CHARGE SL SCH (00:45)
[2016-09-05] MEDS ORDERED: DEXTROSE 50% 50 ML SYR IV PRN ×2 (00:45)
[2016-09-05] MEDS ORDERED: GLUCOSE 40% GEL 15 GM TUBE PO PRN ×2 (00:45)
[2016-09-05] MEDS ORDERED: ZOLPIDEM TARTRATE 5 MG TAB PO PRN (00:45)
[2016-09-05] MEDS ORDERED: GLUCAGON FOR INJ 1 MG VIAL SQ PRN ×2 (00:45)
[2016-09-05] MEDS: SODIUM CHLORIDE 0.9% 1000ML 1,000 ML IV SCH ×3 (02:07→21:13)
[2016-09-05] MEDS: LEVOTHYROXINE 75 MCG TAB PO SCH (05:58)
--- NOTE | 2016-09-05 06:10 | History and Physical ---
History & Physical Date & Time of Service: September 05, 2016 at 06:00 Chief Complaint: Sirs, Uti Primary Care Physician: Oumar Culp M.D. History of Present Illness Source: patient The patient is a 71-year-old male who presents emergency department with intermittent fever that began 4 days prior to arrival. He is status post right ureteral stent placement on August 20 and then lithotripsy by Dr. Mckeon for a 7 mm kidney stone on August 23. He had been doing well post-procedures until 4 days ago when he developed temperatures that went as high as 102.4F. Tylenol and aspirin have given him some relief. He feels generally weak and tired, has nausea but no vomiting. He has been taking Pyridium which made his urine turning orange, but reports while in the emergency department tonight he began have blood in his urine. He does take aspirin daily, and reports taking 2 aspirin and Tylenol for temperature relief prior to presenting to the emergency department tonight. Past Medical/Surgical History Medical Problems: (1) CAD (coronary artery disease) Status: Chronic (2) Diabetes Status: Chronic (3) Idiopathic stricture of urethra Status: Chronic Surgical Problems: (1) H/O angioplasty Status: Resolved Family History No pertinent family history Social History Smoking Status: Unknown if Ever Smoked Smokeless Tobacco Use: No Alcohol Use: none Drug Use: none Marital Status: Housing status: lives with family Occupational Status: retired Multi-Drug Resistant Organisms History of MDRO: No Allergies Coded Allergies: Codeine (Unverified Allergy, Unknown, GI SYMPTOMS, 08/22/16) Sitagliptin (Unverified Allergy, Unknown, GI SYMPTOMS, 08/22/16) Home Medications Scheduled Aspirin (Aspirin), 325 MG PO DAILY Bupropion (Wellbutrin-Xl), 300 MG PO BID Docusate Sodium (Colace), 1 CAP PO BID Doxazosin Mesylate (Doxazosin Mesylate), 4 MG PO DAILY Ergocalciferol (Vitamin D), 50,000 INTER.UNIT PO WK Fluticasone Propionate (Nasal) (Flonase Allergy Relief), 1 SPRAY CHUCKY PRN Gabapentin (Neurontin), 300 MG PO BID Glipizide (Glipizide Er), 10 MG PO BID Levothyroxine Sodium (Levothyroxine Sodium), 75 MCG PO DAILY Losartan Potassium (Cozaar), 50 MG PO DAILY Metformin Hcl (Glucophage), 1,000 MG PO BID Multivitamin (Multivitamin), 1 TAB PO DAILY Nitroglycerin (Nitrostat), 1 TAB SL UD Rosuvastatin Calcium (Crestor), 10 MG PO DAILY Zolpidem Tartrate (Ambien), 10 MG PO HS Scheduled PRN Albuterol Sulfate (Proair Respiclick), 2 PUFF INH Q4 PRN for Shortness of Breath Alprazolam (Xanax), 0.5 MG PO TID PRN for prn Hydrocodone/Acetaminophen 5MG/325MG ([place] 5MG/325MG), 1-2 TABLETS PO Q6 PRN for Pain Ondasetron Odt (Zofran Odt), 4 MG SL Q6H PRN for Nausea or Vomiting Review of Systems The patient denies chest pain, palpitations, shortness of breath, cough, lower extremity swelling, vision change, hearing change, sore throat, weight change, vomiting, abdominal pain, pelvic pain, blood in stool, dysuria, urinary frequency or urgency, lightheadedness, dizziness, headache, memory loss, rash, abnormal bruising , imbalance, focal or generalized weakness, numbness or tingling in arms or legs, arthralgias or myalgias, back or neck pain, or allergy symptoms. The review of systems is otherwise negative other than for that already noted above, and at least 10 systems have been reviewed. Physical Exam Vital Signs Date Time Temp Pulse Resp B/P Pulse Ox O2 Delivery O2 Flow Rate FiO2 09/05/16 02:16 37.3 86 16 126/78 96 Room Air 09/05/16 01:50 Room Air 09/05/16 01:30 80 18 97 Room Air 09/04/16 23:13 86 16 09/04/16 23:08 102/60 94 Room Air 09/04/16 22:45 91 20 09/04/16 22:26 95 09/04/16 22:17 97 Room Air 09/04/16 20:57 37.7 114 20 128/72 93 Room Air The patient is awake, well-developed and adequately nourished, alert and oriented 3, normocephalic and atraumatic, lying in bed and in no acute distress. HEENT--PERRL, EOMI, mucous membranes and oropharynx dry. Neck--supple, no JVD or bruits, thyroid normal, trachea midline, no adenopathy. Heart--normal S1 and S2, no extra beats, no murmurs, rubs or gallops. Lungs--clear bilaterally with good air movement, no respiratory distress, no accessory muscle use. Abdomen--normal bowel sounds and soft, nontender and nondistended, no hernias or masses, no organomegaly, mildly obese. Extremities--no cyanosis, clubbing or edema. There are good distal pulses b/l. Dermatologic--normal skin turgor, normal color, warm and dry, no abnormal lymph nodes, no rash. Neurologic--cranial nerves II through XII grossly intact, motor and sensory examination normal. Rheumatologic--normal range of motion, nontender, muscles and joints. Psychiatric--normal affect. Diagnostics Laboratory Results Results Past 24 Hours Test 09/04/16 21:30 09/04/16 21:32 09/04/16 21:57 09/04/16 22:19 Range/Units Urine Color ORANGE Urine Appearance TURBID CLEAR Urine pH 5.5 4.5-7.5 Urine Specific [place] 1.021 1.000-1.030 Urine Protein 2+ NEG Urine Glucose (UA) NEG NEG Urine Ketones NEG NEG Urine Occult Blood 3+ NEG Urine Nitrite POS NEG Urine Bilirubin 1+ NEG Urine Urobilinogen NEG NEG Urine Leukocyte Esterase LARGE NEG Urine WBC (Auto) >30 0-5 /hpf Urine RBC (Auto) >30 0-4 /hpf Urine Hyaline Casts (Auto) 5-10 0-5 /lpf Urine Epithelial Cells (Auto) >30 0-5 /lpf Urine Bacteria (Auto) 1+ NEG Urine Pathogenic Casts 0-3 GRANULAR CASTS 0 /lpf Urine Yeast (Auto) PRESENT NONE PRSENT White Blood Count 12.18 4.8-10.8 K/uL Red Blood Count 3.95 4.7-6.1 M/uL Hemoglobin 12.2 14.0-18.0 g/dL Hematocrit 37.3 42-52 % Mean Corpuscular Volume 94.4 80-100 fL Mean Corpuscular Hemoglobin 30.9 25-34 pg Mean Corpuscular Hemoglobin Concent 32.7 32-36 g/dl Platelet Count 294 130-400 K/uL Mean Platelet Volume 9.5 7.4-10.4 fL Neutrophils (%) (Auto) 73.1 % Lymphocytes (%) (Auto) 14.3 % Monocytes (%) (Auto) 10.9 % Eosinophils (%) (Auto) 1.1 % Basophils (%) (Auto) 0.1 % Neutrophils # (Auto) 8.90 1.4-6.5 K/uL Lymphocytes # (Auto) 1.74 1.2-3.4 K/uL Monocytes # (Auto) 1.33 0.11-0.59 K/uL Eosinophils # (Auto) 0.14 0-0.5 K/uL Basophils # (Auto) 0.01 0-0.2 K/uL RDW Standard Deviation 45.1 36.4-46.3 fL RDW Coefficient of Variation 12.8 11.5-14.5 % Immature Granulocyte % (Auto) 0.5 % Immature Granulocyte # (Auto) 0.06 0.00-0.02 K/uL Sodium Level 136 136-145 mmol/L Potassium Level 4.7 3.5-5.1 mmol/L Chloride Level 100 98-107 mmol/L Carbon Dioxide Level 29 21-32 mmol/L Anion Gap 7.0 3-11 mmol/L Blood Urea Nitrogen 22 7-18 mg/dl Creatinine 1.60 0.60-1.40 mg/dl Est Creatinine Clear Calc Drug Dose 44.2 ml/min Estimated GFR () 48.8 Estimated GFR (Non- 42.1 BUN/Creatinine Ratio 13.8 10-20 Random Glucose 189 70-99 mg/dl Calcium Level 9.7 8.5-10.1 mg/dl Total Bilirubin 0.3 0.2-1 mg/dl Direct Bilirubin 0.1 0-0.2 mg/dl Aspartate Amino Transf (AST/SGOT) 19 15-37 U/L Alanine Aminotransferase (ALT/SGPT) 22 12-78 U/L Alkaline Phosphatase 32 45-117 U/L Total Protein 8.3 6.4-8.2 gm/dl Albumin 3.3 3.4-5.0 gm/dl Bedside Lactic Acid Venous 1.93 1.94 0.90-1.70 mmol/L Test 09/05/16 05:32 Range/Units Bedside Glucose 125 70-99 mg/dl Microbiology Results 09/04/16 Blood Culture, Received Pending 09/04/16 Blood Culture, Received Pending Impression Assessment and Plan UTI/SIRS,/right ureteral stent/renal insufficiency--the patient will be admitted to medical surgical floor. We'll continue ceftriaxone 1 g IV daily begun in the emergency department. We'll follow urine culture and sensitivity results. Keep nothing by mouth except meds after midnight. Consult urology. Place on normal saline with potassium chloride 20 mEq at 100 mils per hour. Acute Renal insufficiency/hypertension-hold losartan potassium 50 mg by mouth daily. Continue doxazosin 4 mg by mouth at bedtime. Place on IV fluids as above. Follow BMP and magnesium in the a.m. Diabetes mellitus--hold metformin 1000 mg by mouth twice a day. Decrease glipizide ER 10 mg by mouth twice a day to 2.5 mg by mouth twice a day. Place on Accu-Cheks before meals and at bedtime with NovoLog coverage per scale. Hypothyroidism--continue levothyroxine sodium 75 g by mouth daily. Peripheral neuropathy--continue gabapentin 300 mg by mouth twice a day. Hypercholesterolemia--continue Crestor 10 mg by mouth daily. Depression/anxiety/Insomnia--continue Wellbutrin XL 3 mg by mouth twice a day, alprazolam 0.5 mg by mouth 3 times a day when necessary, and zolpidem tartrate 10 mg by mouth at bedtime. Level of Care Med/Surg Advanced Directives Existing Advance Directive: No Existing Living Will: Yes Existing Power of Drum Printer: Yes Resuscitation Status FULL RESUSCITATION VTE Prophylaxis VTE Risk Assessment Done? Y/N: Yes Risk Level: Moderate Given or contraindicated: SCD's Social Service Consult None Apply
[2016-09-05] MEDS: ACETAMINOPHEN 325 MG TAB PO PRN ×3 (06:30→19:52)
--- NOTE | 2016-09-05 06:41 | DIAGNOSTIC IMAGING REPORT ---
CT SCAN OF THE ABDOMEN AND PELVIS WITHOUT CONTRAST CLINICAL HISTORY: Sepsis. Right nephroureteral stent. COMPARISON STUDY: 09-04 TECHNIQUE: CT scan of the abdomen and pelvis was performed from the lung bases to the proximal femurs. Images are reviewed in the axial, sagittal, and coronal planes. IV contrast was not administered for this examination. CT DOSE: 845.19 mGy.cm FINDINGS: Lower chest: There are coronary artery calcifications present. Liver: The unenhanced liver is normal in size, contour, and attenuation. There is no intrahepatic biliary ductal dilatation. Gallbladder: Unremarkable. Spleen: Normal in size and attenuation. Pancreas: Unremarkable. Adrenal glands: Unremarkable. Kidneys: There is a nonobstructing 4 mm lower pole left renal calculus. Multiple right renal calculi are visualized measuring up to 2.5 mm in diameter. There is a right-sided nephroureteral stent present. No calculi are visualized along the course of the stent. There are no bladder calculi. There is no significant hydronephrosis. Bowel: There are no transition zones indicate bowel obstruction. There is colonic diverticulosis. There are no acute peridiverticular inflammatory changes. There is no evidence of acute appendicitis. Peritoneum: There is no intraperitoneal free air or abdominal ascites. Vasculature: The abdominal aorta is normal in course and caliber. Adenopathy: None. Pelvic viscera: The bladder, and pelvic viscera are unremarkable. Skeletal structures: Postsurgical changes are present within the lumbar spine. IMPRESSION: 1. Bilateral nephrolithiasis 2. Interval placement of a right-sided nephroureteral stent 3. No evidence of bowel obstruction. No evidence of free air 4. Diverticulosis. No evidence of acute diverticulitis. 5. No evidence of acute appendicitis. Electronically signed by: Jairo Kenny M.D. 09/05/2016 6:39 AM Dictated Date/Time: 09/05/2016 6:35 AM
[2016-09-05] MEDS ORDERED: INSULIN ASPART 100 UNITS/ML 3 ML PEN SC SCH (07:00)
[2016-09-05] MEDS ORDERED: FLUTICASONE PROPIONATE NA SPR 16 GM BTL NAE PRN (08:00)
[2016-09-05] MEDS: GABAPENTIN 300 MG CAP PO SCH ×2 (08:57→19:51)
[2016-09-05] MEDS: BuPROPion XL 300 MG TABCR PO SCH ×2 (08:58→19:52)
[2016-09-05] MEDS: DOXAZosin MESYLATE TAB 4 MG TAB PO SCH (08:58)
[2016-09-05] MEDS: DOCUSATE SODIUM 100 MG CAP PO SCH ×2 (08:59→19:51)
[2016-09-05] MEDS: INSULIN ASPART 100 UNITS/ML 3 ML PEN SC SCH ×4 (09:06→21:16)
--- NOTE | 2016-09-05 13:00 | Urology Consultation ---
History General Date of Service: September 05, 2016. Chief Complaint: fevers Primary Care Physician: Oumar Culp M.D. Pt seen a urologist before?: Yes (Dr. Mckeon) If yes, why?: right ureteral stone History of Present Illness 71 yo male presents to [facility] with c/o intermittent fevers, fatigue, weakness, and n/v x 5 days. He is s/p right URS/LL with dilation of urethral stricture by Dr. Mckeon on 08-22-16. He reports he has been voiding better, and had no pain since the procedure. Was doing relatively well until his fevers started 5 days ago. He reports fevers up to 102F. Scheduled for stent removal with Dr. Mckeon tomorrow. CT scan on admission shows his stent is in good position. No stone fragments noted along the course of the ureter. White count noted to be 12.18 on admission. Cr of 1.6. Temp of 37.7C this morning. Blood and urine cultures pending. He has been started on ceftriaxone. Imaging Imaging: CT Laboratory Last 24 Hours Test 09/04/16 21:30 09/04/16 21:32 09/04/16 21:57 09/04/16 22:19 Urine Color ORANGE Urine Appearance TURBID Urine pH 5.5 Urine Specific [place] 1.021 Urine Protein 2+ Urine Glucose (UA) NEG Urine Ketones NEG Urine Occult Blood 3+ Urine Nitrite POS Urine Bilirubin 1+ Urine Urobilinogen NEG Urine Leukocyte Esterase LARGE Urine WBC (Auto) >30 /hpf Urine RBC (Auto) >30 /hpf Urine Hyaline Casts (Auto) 5-10 /lpf Urine Epithelial Cells (Auto) >30 /lpf Urine Bacteria (Auto) 1+ Urine Pathogenic Casts 0-3 GRANULAR CASTS /lpf Urine Yeast (Auto) PRESENT White Blood Count 12.18 K/uL Red Blood Count 3.95 M/uL Hemoglobin 12.2 g/dL Hematocrit 37.3 % Mean Corpuscular Volume 94.4 fL Mean Corpuscular Hemoglobin 30.9 pg Mean Corpuscular Hemoglobin Concent 32.7 g/dl Platelet Count 294 K/uL Mean Platelet Volume 9.5 fL Neutrophils (%) (Auto) 73.1 % Lymphocytes (%) (Auto) 14.3 % Monocytes (%) (Auto) 10.9 % Eosinophils (%) (Auto) 1.1 % Basophils (%) (Auto) 0.1 % Neutrophils # (Auto) 8.90 K/uL Lymphocytes # (Auto) 1.74 K/uL Monocytes # (Auto) 1.33 K/uL Eosinophils # (Auto) 0.14 K/uL Basophils # (Auto) 0.01 K/uL RDW Standard Deviation 45.1 fL RDW Coefficient of Variation 12.8 % Immature Granulocyte % (Auto) 0.5 % Immature Granulocyte # (Auto) 0.06 K/uL Sodium Level 136 mmol/L Potassium Level 4.7 mmol/L Chloride Level 100 mmol/L Carbon Dioxide Level 29 mmol/L Anion Gap 7.0 mmol/L Blood Urea Nitrogen 22 mg/dl Creatinine 1.60 mg/dl Est Creatinine Clear Calc Drug Dose 44.2 ml/min Estimated GFR () 48.8 Estimated GFR (Non- 42.1 BUN/Creatinine Ratio 13.8 Random Glucose 189 mg/dl Calcium Level 9.7 mg/dl Total Bilirubin 0.3 mg/dl Direct Bilirubin 0.1 mg/dl Aspartate Amino Transf (AST/SGOT) 19 U/L Alanine Aminotransferase (ALT/SGPT) 22 U/L Alkaline Phosphatase 32 U/L Total Protein 8.3 gm/dl Albumin 3.3 gm/dl Bedside Lactic Acid Venous 1.93 mmol/L 1.94 mmol/L Test 09/05/16 05:32 09/05/16 07:30 09/05/16 11:47 Bedside Glucose 125 mg/dl 157 mg/dl 153 mg/dl Problem List Medical Problems: (1) Intractable abdominal pain Status: Acute (2) Right ureteral calculus Status: Acute (3) SIRS (systemic inflammatory response syndrome) Status: Acute (4) UTI (urinary tract infection) Status: Acute Past History coronary artery disease, diabetes, kidney stones, other (urethral sticture) Past Surgical History: angioplasty without stent (coronary artery), ureteral stent (with laser lithotripsy 08-22-16) Family History No pertinent family history Social History Hx Tobacco Use In Past Year?: No Smoking: non-smoker Alcohol: never Drug use: none Marital status: Housing status: lives with family Occupation status: retired History of MDRO No Allergies Coded Allergies: Codeine (Unverified Allergy, Unknown, GI SYMPTOMS, 08/22/16) Sitagliptin (Unverified Allergy, Unknown, GI SYMPTOMS, 08/22/16) Medications Home Medications: Home Meds and Scripts Medications Dose Route/Sig Max Daily Dose Days Date Category Dose Instructions Colace (Docusate Sodium) 100 Mg Cap 1 Cap PO BID 15 08/22/16 Rx Wellbutrin-Xl (Bupropion HCl) 300 Mg Tabcr 300 Mg PO BID 08/22/16 Reported Zofran Odt (Ondansetron HCl) 4 Mg Tab 4 Mg SL Q6H PRN 08/22/16 Reported Vitamin D (Ergocalciferol) 50,000 Interunit Cap 50,000 Inter.unit PO WK 08/22/16 Reported TAKE THIS MED EVERY FRIDAY Cozaar (Losartan Potassium) 50 Mg Tab 50 Mg PO DAILY 08/22/16 Reported [place] 5MG/325MG (Acetaminophen/Hydrocodone Bitart) Tab 1-2 Tablets PO Q6 PRN 08/22/16 Reported PRN PAIN Proair Respiclick (Albuterol Sulfate) 108 Mcg/Act Aer 2 Puff INH Q4 PRN 08/22/16 Reported Crestor (Rosuvastatin Calcium) 10 Mg Tab 10 Mg PO DAILY 06/10/16 Reported Ambien (Zolpidem Tartrate) 5 Mg Tab 10 Mg PO HS 08/11/15 Reported Nitrostat (Nitroglycerin) 0.4 Mg Tab 1 Tab SL UD 08/11/15 Reported Multivitamin (Multivitamins) Tab 1 Tab PO DAILY 08/11/15 Reported Glucophage (Metformin Hcl) 1,000 Mg Tab 1,000 Mg PO BID 08/11/15 Reported Levothyroxine Sodium 75 Mcg Tab 75 Mcg PO DAILY 08/11/15 Reported Glipizide Er (Glipizide) 10 Mg Tab 10 Mg PO BID 08/11/15 Reported Neurontin (Gabapentin) 300 Mg Cap 300 Mg PO BID 08/11/15 Reported Flonase Allergy Relief (Fluticasone Propionate (Nasal)) 50 Mcg/Act Spr 1 Rankin CHUCKY PRN 08/11/15 Reported Doxazosin Mesylate 4 Mg Tab 4 Mg PO DAILY 08/11/15 Reported Aspirin 325 Mg Tab 325 Mg PO DAILY 08/11/15 Reported Xanax (Alprazolam) 0.5 Mg Tab 0.5 Mg PO TID PRN 08/11/15 Reported Inpatient Medications: Current Inpatient Medications Medications (Trade) Dose Ordered Sig/Sherry Route Start Time Stop Time Status Last Admin Dose Admin Acetaminophen (Tylenol Tab) 650 mg Q4H PRN PO 09/05/16 00:45 10/05/16 00:44 09/05/16 06:30 650 MG Zolpidem Tartrate (Ambien Tab) 5 mg HSZ PRN PO 09/05/16 00:45 10/05/16 00:44 09/05/16 02:12 5 MG Ondansetron HCl (Zofran Inj) 4 mg Q6H PRN IV 09/05/16 00:45 10/05/16 00:44 Insulin Aspart (novoLOG ASPART) SLIDING SCALE If C... ACHS SC 09/05/16 06:30 10/05/16 06:59 09/05/16 09:06 1 UNITS Glucose (Glucose Chew Tab) 1 tabs UD PRN PO 09/05/16 00:45 10/05/16 00:44 Dextrose (Dextrose 50% 50ML Syringe) 50 ml UD PRN IV 09/05/16 00:45 10/05/16 00:44 Glucagon 1 mg 1 mg UD PRN SQ 09/05/16 00:45 10/05/16 00:44 Acetaminophen (Ofirmev Iv) 100 ml @ 400 mls/hr Q8H PRN IV 09/05/16 00:45 10/05/16 00:44 Glucose (Glucose 40% Gel) UD PRN PO 09/05/16 00:45 10/05/16 00:44 Morphine Sulfate (MoRPHine SULFATE INJ) 2 mg Q2H PRN IV 09/05/16 00:45 09/19/16 00:44 Morphine Sulfate (MoRPHine SULFATE INJ) 4 mg Q2H PRN IV 09/05/16 00:45 09/19/16 00:44 Alprazolam (Xanax Tab) 0.5 mg TID PRN PO 09/05/16 00:45 10/05/16 00:44 Bupropion HCl (Wellbutrin-Xl Tab) 300 mg BID PO 09/05/16 08:00 10/05/16 08:59 09/05/16 08:58 300 MG Docusate Sodium (coLACE CAP) 100 mg BID PO 09/05/16 08:00 10/05/16 08:59 09/05/16 08:59 100 MG Doxazosin Mesylate (Cardura Tab) 4 mg DAILY PO 09/05/16 08:00 10/05/16 08:59 09/05/16 08:58 4 MG Fluticasone Propionate (Flonase Nasal Rankin) 1 sprays DAILY PRN CHUCKY 09/05/16 08:00 10/05/16 07:59 Gabapentin (Neurontin Cap) 300 mg BID PO 09/05/16 08:00 10/05/16 08:59 09/05/16 08:57 300 MG Acetaminophen/ Hydrocodone Bitart ([place] 5/325 Tab) 1 tab Q4 PRN PO 09/05/16 00:45 09/19/16 00:44 Levothyroxine Sodium (Synthroid Tab) 75 mcg DAILYBB PO 09/05/16 06:30 10/05/16 06:29 09/05/16 05:58 75 MCG Nitroglycerin (Nitrostat Tab) 0.4 mg UD SL 09/05/16 00:45 10/05/16 00:44 Glipizide 2.5 mg 2.5 mg BIDM PO 09/05/16 08:00 10/05/16 07:59 09/05/16 08:57 2.5 MG Ceftriaxone Sodium 1 gm/ Dextrose 50 ml @ 100 mls/hr Q24H IV 09/05/16 22:00 09/13/16 22:29 Sodium Chloride (Nss 1000ml) 1,000 ml @ 100 mls/hr Q10H IV 09/05/16 00:20 10/05/16 00:19 09/05/16 12:07 100 MLS/HR Review of Systems Review of Systems Constitutional: No chills, No fever Eyes: No blurred vision Neurological: No dizzy Endocrine: No excessive thirst Gastrointestinal: No abdominal pain, No nausea, No vomiting Cardiovascular: No chest pain Respiratory: No shortness of breath Skin: No rash Musculoskeletal: No joint pain Male : + blood in urine, + painful urination Physical Exam Vital Signs: Vital Signs Past 12 Hours Date Time Temp Pulse Resp B/P Pulse Ox O2 Delivery O2 Flow Rate FiO2 09/05/16 07:46 37.7 101 16 122/71 94 Room Air 09/05/16 02:16 37.3 86 16 126/78 96 Room Air 09/05/16 01:50 Room Air 09/05/16 01:30 80 18 97 Room Air Physical Exam: General Appearance: no apparent distress Eyes: bilateral eyes normal inspection ENT: hearing grossly normal Neck: no JVD Respiratory/Chest: no respiratory distress, no accessory muscle use Cardiovascular: no JVD Extremities: normal inspection Neurologic/Psychiatric: alert, normal mood/affect, oriented x 3 Skin: normal color Assessment & Plan Assessment & Plan A/P: Suspected UTI with possible sepsis s/p right URS/LL The stent remains in good position on CT scan. No surgical management planned for the pt at this time. Will provide the pt a diet today. Continue abx pending culture senstivities. Recommend treating based on sensitivities for 10-14 days. Would not remove stent tomorrow as previously planned in the setting of infection. Will plan for removal in 7-14 days after he has been treated for adequately treated for infection. Thanks for the consult. Will continue to follow along with primary service.
--- NOTE | 2016-09-05 14:09 | Progress Note ---
Subjective Date of Service: September 05, 2016. Subjective this pt is feeling much better has no issues except for some RLQ pain and gross hematuria Problem List Medical Problems: (1) Intractable abdominal pain Status: Acute (2) Right ureteral calculus Status: Acute (3) SIRS (systemic inflammatory response syndrome) Status: Acute (4) UTI (urinary tract infection) Status: Acute Review of Systems Constitutional: No chills, No fever, No weakness Respiratory: No cough, No shortness of breath Cardiac: No chest pain, No edema Abdomen: + pain, No diarrhea, No nausea, No vomiting Musculoskeletal: No joint pain, No muscle pain Objective Vital Signs Date Time Temp Pulse Resp B/P Pulse Ox O2 Delivery O2 Flow Rate FiO2 09/05/16 02:16 37.3 86 16 126/78 96 Room Air 09/05/16 01:50 Room Air 09/05/16 01:30 80 18 97 Room Air 09/04/16 23:13 86 16 09/04/16 23:08 102/60 94 Room Air 09/04/16 22:45 91 20 09/04/16 22:26 95 09/04/16 22:17 97 Room Air 09/04/16 20:57 37.7 114 20 128/72 93 Room Air Physical Exam General Appearance: WD/WN, + mild distress Neck: supple, no JVD Respiratory/Chest: chest non-tender, lungs clear, normal breath sounds Cardiovascular: regular rate, rhythm, no murmur Abdomen: normal bowel sounds, soft, + guarding, + tenderness Extremities: no pedal edema, no calf tenderness Neurologic/Psychiatric: alert, oriented x 3 Laboratory Results Last 24 Hours Test 09/04/16 21:30 09/04/16 21:32 09/04/16 21:57 09/04/16 22:19 Urine Color ORANGE Urine Appearance TURBID Urine pH 5.5 Urine Specific [place] 1.021 Urine Protein 2+ Urine Glucose (UA) NEG Urine Ketones NEG Urine Occult Blood 3+ Urine Nitrite POS Urine Bilirubin 1+ Urine Urobilinogen NEG Urine Leukocyte Esterase LARGE Urine WBC (Auto) >30 /hpf Urine RBC (Auto) >30 /hpf Urine Hyaline Casts (Auto) 5-10 /lpf Urine Epithelial Cells (Auto) >30 /lpf Urine Bacteria (Auto) 1+ Urine Pathogenic Casts 0-3 GRANULAR CASTS /lpf Urine Yeast (Auto) PRESENT White Blood Count 12.18 K/uL Red Blood Count 3.95 M/uL Hemoglobin 12.2 g/dL Hematocrit 37.3 % Mean Corpuscular Volume 94.4 fL Mean Corpuscular Hemoglobin 30.9 pg Mean Corpuscular Hemoglobin Concent 32.7 g/dl Platelet Count 294 K/uL Mean Platelet Volume 9.5 fL Neutrophils (%) (Auto) 73.1 % Lymphocytes (%) (Auto) 14.3 % Monocytes (%) (Auto) 10.9 % Eosinophils (%) (Auto) 1.1 % Basophils (%) (Auto) 0.1 % Neutrophils # (Auto) 8.90 K/uL Lymphocytes # (Auto) 1.74 K/uL Monocytes # (Auto) 1.33 K/uL Eosinophils # (Auto) 0.14 K/uL Basophils # (Auto) 0.01 K/uL RDW Standard Deviation 45.1 fL RDW Coefficient of Variation 12.8 % Immature Granulocyte % (Auto) 0.5 % Immature Granulocyte # (Auto) 0.06 K/uL Sodium Level 136 mmol/L Potassium Level 4.7 mmol/L Chloride Level 100 mmol/L Carbon Dioxide Level 29 mmol/L Anion Gap 7.0 mmol/L Blood Urea Nitrogen 22 mg/dl Creatinine 1.60 mg/dl Est Creatinine Clear Calc Drug Dose 44.2 ml/min Estimated GFR () 48.8 Estimated GFR (Non- 42.1 BUN/Creatinine Ratio 13.8 Random Glucose 189 mg/dl Calcium Level 9.7 mg/dl Total Bilirubin 0.3 mg/dl Direct Bilirubin 0.1 mg/dl Aspartate Amino Transf (AST/SGOT) 19 U/L Alanine Aminotransferase (ALT/SGPT) 22 U/L Alkaline Phosphatase 32 U/L Total Protein 8.3 gm/dl Albumin 3.3 gm/dl Bedside Lactic Acid Venous 1.93 mmol/L 1.94 mmol/L Test 09/05/16 05:32 Bedside Glucose 125 mg/dl Assessment and Plan 71 M with recent urology intervention, here with fevers UTI/SIRS,/right ureteral stent ceftriaxone 1 g IV daily begun in the emergency department. Consult urology. ivf Acute Renal failure, hypertension-hold losartan potassium 50 mg by mouth daily. Continue doxazosin 4 mg by mouth at bedtime. Diabetes mellitus--hold metformin 1000 mg by mouth twice a day. Decrease glipizide ER 10 mg by mouth twice a day to 2.5 mg by mouth twice a day. SSI Hypothyroidism-- levothyroxine sodium 75 g by mouth daily. Peripheral neuropathy- gabapentin 300 mg by mouth twice a day. Hypercholesterolemia-- Crestor 10 mg by mouth daily. Depression/anxiety/Insomnia- Wellbutrin alprazolam 0.5 mg
[2016-09-05] MEDS ORDERED: POLYETHYLENE (MIRALAX) 17 GM PACK PO ONE (17:30)
[2016-09-05] MEDS ORDERED: POLYETHYLENE (MIRALAX) 17 GM PACK ONE (17:46)
[2016-09-05] MEDS: ALPRAZOLAM 0.5 MG TAB PO PRN (19:52)
[2016-09-05] MEDS: CEFTRIAXONE SOD INJ 1 GM in DEXTROSE 5% ADD-VANTAGE 50ML 50 ML IV SCH (21:13)
[2016-09-05] MEDS: ZOLPIDEM TARTRATE 5 MG TAB PO PRN (22:52)
[2016-09-06 05:39] LABS: COMPLETE YES; EOS % 1.1 %; HEMATOCRIT 34.3 % (42-52); IG% 0.5 %; LYMPH % 10.2 %; LYMPH ABS # 1.04 K/uL (1.2-3.4); MEAN CELL VOLUME 95.5 fL (80-100); MEAN CORPUSCULAR HEMOGLOBIN 30.4 pg (25-34); MEAN CORPUSCULAR HGB CONC 31.8 g/dl (32-36); MEAN PLATELET VOLUME 9.3 fL (7.4-10.4); MONO % 11.2 %; PLATELET COUNT 254 K/uL (130-400); RED BLOOD COUNT 3.59 M/uL (4.7-6.1); WHITE BLOOD COUNT 10.17 K/uL (4.8-10.8)
[2016-09-06 06:10] LABS: BUN/CREATININE RATIO 13.2 (10-20); CALCIUM 8.6 mg/dl (8.5-10.1); CREATININE 1.2 mg/dl (0.60-1.40); POTASSIUM 4.3 mmol/L (3.5-5.1)
[2016-09-06] MEDS: SODIUM CHLORIDE 0.9% 1000ML 1,000 ML IV SCH ×2 (06:10→15:45)
[2016-09-06] MEDS: LEVOTHYROXINE 75 MCG TAB PO SCH (06:10)
[2016-09-06 07:43] VITALS: BP 132/83; PULSE 101; TEMP 37.2; O2SAT 93
--- NOTE | 2016-09-06 08:14 | Clinical Documentation Query ---
QUERY 1 OF [address] PUTNAM, In your clinical opinion is this patient being managed for: ( ) UTI due to recent ureteral stent placement ( ) Other explanation of clinical findings (Please Explain) ( xx ) Unable to determine (Please Define) ( ) Need to Discuss ( ) Not Agree The medical record reflects the following clinical findings, treatment, and risk factors. Clinical Indicators: Pt had ureteral stent placed and dilation of urethral stricture on 08/22/16. Fevers started 5 days ago (approx 08/31/16). Original plan was to remove stent on 09/06 however this will be held until 1-2 wks after pt adequately treated for UTI. Treatment: IV fluids, blood and urine cultures pending, IV rocephin, urology consult Risk Factors: ureteral stent placement, DM QUERY 2 OF 2 Since ICD 10 [id number], SIRS/UTI will not be automatically coded to sepsis from UTI. In your clinical opinion is this patient being managed for: ( ) Sepsis, POA from UTI ( ) Other explanation of clinical findings (Please Explain) ( xx) Unable to determine (Please Define) ( ) Need to Discuss ( ) Not Agree The medical record reflects the following clinical findings, treatment, and risk factors. Clinical Indicators:71 yo male presenting with intermittent fever. Reportedly max temp of 102.4 as an outpatient. VS 37.7-114-20, 128/72. Lactic acid 1.94, UA cx pending however UA LE large/WBC >30/bacterial +1. 1/2 BC prelim with gram positive cocci. WBC 12.18, Cr 1.6 Treatment:IV fluids, IV rocephin, Blood and urine cx pending, urology consult Risk Factors: suspected UTI, DM, recent ureteral stent Please clarify and document your clinical opinion in the progress notes and discharge summary. Terms such as "probable", "suspected", "likely", "questionable", "possible", or "still to be ruled out" are acceptable. IF IN AGREEMENT, YOU MUST DOCUMENT ABOVE DIAGNOSTIC STATEMENT IN DAILY PROGRESS NOTES AND DISCHARGE SUMMARY. This document is not part of the patient's record. Thank You, Felicia Grimaldo RN [phone]
[2016-09-06] MEDS ORDERED: VANCOMYCIN CONSULT ACTIVE PRN (08:15)
[2016-09-06] MEDS: POLYETHYLENE (MIRALAX) 17 GM PACK PO SCH (08:19)
[2016-09-06] MEDS: DOXAZosin MESYLATE TAB 4 MG TAB PO SCH (08:19)
[2016-09-06] MEDS: GABAPENTIN 300 MG CAP PO SCH ×2 (08:19→20:42)
[2016-09-06] MEDS: DOCUSATE SODIUM 100 MG CAP PO SCH ×2 (08:19→20:42)
[2016-09-06] MEDS: BuPROPion XL 300 MG TABCR PO SCH ×2 (08:20→20:41)
[2016-09-06] MEDS: ALPRAZOLAM 0.5 MG TAB PO PRN (08:23)
[2016-09-06] MEDS: INSULIN ASPART 100 UNITS/ML 3 ML PEN SC SCH ×4 (08:36→20:42)
[2016-09-06] MEDS ORDERED: VANCOMYCIN INJ 2,300 MG in SODIUM CHLORIDE 0.9% 500ML 500 ML IV ONE (08:45)
--- NOTE | 2016-09-06 08:50 | Pharmacy Progress Note ---
Pharmacy Abx Initial Consult Date of Service September 06, 2016. Pharmacy Dosing Scope Date of Consult: 09/06/16 Consultation requested by: Dr. Abdi Pharmacy is consulted to initiate Vancomycin IV dosing therapy, order appropriate labs and adjust drug dose/frequency. Subjective The patient is a 71 year old male admitted on September 05, 2016 at 00:42 with fever and hematuria. Objective Height (Feet): 5 Height (Inches): 7.00 Weight (Kilograms): 90.700 Vital Signs (Past 12Hrs) Vital Signs Past 12 Hours Date Time Temp Pulse Resp B/P Pulse Ox O2 Delivery O2 Flow Rate FiO2 09/06/16 07:43 37.2 101 18 132/83 93 Room Air 09/06/16 00:00 Room Air 09/05/16 23:50 37.1 95 16 132/79 97 Room Air 09/05/16 21:10 94 144/80 Lab Results (24Hrs) Test 09/05/16 19:45 09/06/16 05:22 09/06/16 07:55 Bedside Glucose 206 mg/dl (70-99) 133 mg/dl (70-99) White Blood Count 10.17 K/uL (4.8-10.8) Red Blood Count 3.59 M/uL (4.7-6.1) Hemoglobin 10.9 g/dL (14.0-18.0) Hematocrit 34.3 % (42-52) Mean Corpuscular Volume 95.5 fL (80-100) Mean Corpuscular Hemoglobin 30.4 pg (25-34) Mean Corpuscular Hemoglobin Concent 31.8 g/dl (32-36) Platelet Count 254 K/uL (130-400) Mean Platelet Volume 9.3 fL (7.4-10.4) Neutrophils (%) (Auto) 77.0 % Lymphocytes (%) (Auto) 10.2 % Monocytes (%) (Auto) 11.2 % Eosinophils (%) (Auto) 1.1 % Basophils (%) (Auto) 0.0 % Neutrophils # (Auto) 7.83 K/uL (1.4-6.5) Lymphocytes # (Auto) 1.04 K/uL (1.2-3.4) Monocytes # (Auto) 1.14 K/uL (0.11-0.59) Eosinophils # (Auto) 0.11 K/uL (0-0.5) Basophils # (Auto) 0.00 K/uL (0-0.2) RDW Standard Deviation 45.1 fL (36.4-46.3) RDW Coefficient of Variation 12.9 % (11.5-14.5) Immature Granulocyte % (Auto) 0.5 % Immature Granulocyte # (Auto) 0.05 K/uL (0.00-0.02) Sodium Level 140 mmol/L (136-145) Potassium Level 4.3 mmol/L (3.5-5.1) Chloride Level 104 mmol/L (98-107) Carbon Dioxide Level 27 mmol/L (21-32) Anion Gap 9.0 mmol/L (3-11) Blood Urea Nitrogen 16 mg/dl (7-18) Creatinine 1.20 mg/dl (0.60-1.40) Est Creatinine Clear Calc Drug Dose 58.9 ml/min Estimated GFR () 69.1 Estimated GFR (Non- 59.6 BUN/Creatinine Ratio 13.2 (10-20) Random Glucose 152 mg/dl (70-99) Calcium Level 8.6 mg/dl (8.5-10.1) Magnesium Level 2.0 mg/dl (1.8-2.4) Micro Results Date/Time Source Procedure Growth Status 09/04/16 22:12 Blood Blood Culture - Preliminary NO GROWTH TO DATE. Resulted 09/04/16 21:32 Blood Blood Culture - Preliminary Gram Positive Cocci Resulted 09/04/16 21:30 Urine , Clean Catch Urine Culture - Preliminary Staphylococcus Aureus Resulted Assessment & Plan Assessment 71 year old male admitted with fever and hematuria, s/p right ureteral stent placement and lithotripsy on 08/20/16. Patient was started on Ceftriaxone IV at the time of admission for UTI, SIRS. On day # 3 of hospital stay, urine culture resulted as S.aureus and 1/2 BC is growing GPC. Pharmacy consulted to dose Vancomycin IV at this time. Plan Vancomycin IV for treatment of UTI and GPC bacteremia (likely S.aureus since this has been isolated in urine) Vancomycin IV * Loading dose: 2300 mg (25 mg/kg) * Maintenance dose: 1250 mg IV (14 mg/kg) every 12 hours * Acute renal impairment resolved - Scr improved to 1.2 mg/dL (baseline 1-1.2 mg /dL) * Goal trough level for bacteremia : 15 to 20 mcg/mL * Trough level ordered for 09/08/16 Pharmacy will continue to follow and will adjust dose/frequency as necessary. Thank you.
--- NOTE | 2016-09-06 09:12 | Progress Note ---
Subjective Date of Service: September 06, 2016. Subjective Pt evaluation today including: conversation w/ patient, chart review, lab review Voiding: no voiding problems Pt feeling better since admission. Tolerating diet and ambulating around room. He continues to have intermittent low grade fevers. Otherwise vitals stable. He reports intermittent hematuria- discussed this is normal with ureteral stent in place. Urine culture preliminary for staph aureus. Blood cultures- one is showing no growth while the other is preliminary showing gm positive cocci. He remains on IV ceftriaxone. Problem List Medical Problems: (1) Intractable abdominal pain Status: Acute (2) Right ureteral calculus Status: Acute (3) SIRS (systemic inflammatory response syndrome) Status: Acute (4) UTI (urinary tract infection) Status: Acute Review of Systems Constitutional: + see HPI, No chills Eyes: No worsening of vision ENT: No hearing loss Respiratory: No cough, No shortness of breath Cardiac: No chest pain Abdomen: No nausea, No vomiting Male : + hematuria, + see HPI, No dysuria Heme: + see HPI Endo: + fatigue Objective Vital Signs Date Time Temp Pulse Resp B/P Pulse Ox O2 Delivery O2 Flow Rate FiO2 09/06/16 07:43 37.2 101 18 132/83 93 Room Air 09/06/16 00:00 Room Air 09/05/16 23:50 37.1 95 16 132/79 97 Room Air 09/05/16 21:10 94 144/80 09/05/16 20:06 37.7 104 18 162/75 98 Room Air 09/05/16 16:13 37.6 09/05/16 16:00 Room Air 09/05/16 15:05 37.1 99 20 128/76 96 Room Air Physical Exam General Appearance: WD/WN, no apparent distress ENT: hearing grossly normal Respiratory/Chest: no respiratory distress, no accessory muscle use Abdomen: soft Extremities: normal range of motion, normal inspection, no pedal edema, no calf tenderness Neurologic/Psychiatric: alert, normal mood/affect, oriented x 3 Skin: normal color, warm/dry Laboratory Results Last 24 Hours Test 09/05/16 11:47 09/05/16 16:39 09/05/16 19:45 09/06/16 05:22 Bedside Glucose 153 mg/dl 169 mg/dl 206 mg/dl White Blood Count 10.17 K/uL Red Blood Count 3.59 M/uL Hemoglobin 10.9 g/dL Hematocrit 34.3 % Mean Corpuscular Volume 95.5 fL Mean Corpuscular Hemoglobin 30.4 pg Mean Corpuscular Hemoglobin Concent 31.8 g/dl Platelet Count 254 K/uL Mean Platelet Volume 9.3 fL Neutrophils (%) (Auto) 77.0 % Lymphocytes (%) (Auto) 10.2 % Monocytes (%) (Auto) 11.2 % Eosinophils (%) (Auto) 1.1 % Basophils (%) (Auto) 0.0 % Neutrophils # (Auto) 7.83 K/uL Lymphocytes # (Auto) 1.04 K/uL Monocytes # (Auto) 1.14 K/uL Eosinophils # (Auto) 0.11 K/uL Basophils # (Auto) 0.00 K/uL RDW Standard Deviation 45.1 fL RDW Coefficient of Variation 12.9 % Immature Granulocyte % (Auto) 0.5 % Immature Granulocyte # (Auto) 0.05 K/uL Sodium Level 140 mmol/L Potassium Level 4.3 mmol/L Chloride Level 104 mmol/L Carbon Dioxide Level 27 mmol/L Anion Gap 9.0 mmol/L Blood Urea Nitrogen 16 mg/dl Creatinine 1.20 mg/dl Est Creatinine Clear Calc Drug Dose 58.9 ml/min Estimated GFR () 69.1 Estimated GFR (Non- 59.6 BUN/Creatinine Ratio 13.2 Random Glucose 152 mg/dl Calcium Level 8.6 mg/dl Magnesium Level 2.0 mg/dl Test 09/06/16 07:55 Bedside Glucose 133 mg/dl Assessment and Plan Urosepsis Pt doing better today. Continue IV ceftriaxone pending sensitivities. Recommend 10 -14 days of oral antibiotics upon discharge. Keep stent in setting of infection- will plan to remove in 1-2 weeks.
[2016-09-06 14:53] VITALS: BP 127/77; PULSE 91; TEMP 36.9; O2SAT 99
--- NOTE | 2016-09-06 15:42 | Progress Note ---
Subjective Date of Service: September 06, 2016. Subjective pt looks and feels much better but has staph in both urine and blood cultures, sensitivities pending he has no further gross hematuria or abdominal pain Problem List Medical Problems: (1) Intractable abdominal pain Status: Acute (2) Right ureteral calculus Status: Acute (3) SIRS (systemic inflammatory response syndrome) Status: Acute (4) UTI (urinary tract infection) Status: Acute Review of Systems Constitutional: No chills, No fever, No weakness Eyes: No eye pain, No worsening of vision Respiratory: No cough, No dyspnea on exertion, No shortness of breath, No sputum Cardiac: No PND, No chest pain, No edema, No orthopnea Abdomen: No diarrhea, No nausea, No pain, No vomiting Male : No dysuria, No hematuria, No incontinence, No urinary frequency Psychiatric: No anhedonism, No depression symptoms Objective Vital Signs Date Time Temp Pulse Resp B/P Pulse Ox O2 Delivery O2 Flow Rate FiO2 09/06/16 07:43 37.2 101 18 132/83 93 Room Air 09/06/16 00:00 Room Air 09/05/16 23:50 37.1 95 16 132/79 97 Room Air 09/05/16 21:10 94 144/80 09/05/16 20:06 37.7 104 18 162/75 98 Room Air 09/05/16 16:13 37.6 09/05/16 16:00 Room Air 09/05/16 15:05 37.1 99 20 128/76 96 Room Air Physical Exam General Appearance: WD/WN, + mild distress Eyes: PERRL, EOMI Neck: supple, no JVD Respiratory/Chest: chest non-tender, lungs clear, normal breath sounds Cardiovascular: regular rate, rhythm, no murmur Abdomen: normal bowel sounds, non tender, soft Extremities: no pedal edema, no calf tenderness Neurologic/Psychiatric: alert, oriented x 3 Skin: normal color, warm/dry Laboratory Results Last 24 Hours Test 09/05/16 11:47 09/05/16 16:39 09/05/16 19:45 09/06/16 05:22 Bedside Glucose 153 mg/dl 169 mg/dl 206 mg/dl White Blood Count 10.17 K/uL Red Blood Count 3.59 M/uL Hemoglobin 10.9 g/dL Hematocrit 34.3 % Mean Corpuscular Volume 95.5 fL Mean Corpuscular Hemoglobin 30.4 pg Mean Corpuscular Hemoglobin Concent 31.8 g/dl Platelet Count 254 K/uL Mean Platelet Volume 9.3 fL Neutrophils (%) (Auto) 77.0 % Lymphocytes (%) (Auto) 10.2 % Monocytes (%) (Auto) 11.2 % Eosinophils (%) (Auto) 1.1 % Basophils (%) (Auto) 0.0 % Neutrophils # (Auto) 7.83 K/uL Lymphocytes # (Auto) 1.04 K/uL Monocytes # (Auto) 1.14 K/uL Eosinophils # (Auto) 0.11 K/uL Basophils # (Auto) 0.00 K/uL RDW Standard Deviation 45.1 fL RDW Coefficient of Variation 12.9 % Immature Granulocyte % (Auto) 0.5 % Immature Granulocyte # (Auto) 0.05 K/uL Sodium Level 140 mmol/L Potassium Level 4.3 mmol/L Chloride Level 104 mmol/L Carbon Dioxide Level 27 mmol/L Anion Gap 9.0 mmol/L Blood Urea Nitrogen 16 mg/dl Creatinine 1.20 mg/dl Est Creatinine Clear Calc Drug Dose 58.9 ml/min Estimated GFR () 69.1 Estimated GFR (Non- 59.6 BUN/Creatinine Ratio 13.2 Random Glucose 152 mg/dl Calcium Level 8.6 mg/dl Magnesium Level 2.0 mg/dl Test 09/06/16 07:55 Bedside Glucose 133 mg/dl Assessment and Plan 71 M with recent urology intervention, here with fevers UTI/SIRS,/right ureteral stent ceftriaxone 1 g IV daily begun in the emergency department. Consult urology following not planning to take out stents Blood culture shows one with gram positive, urine also shows staph, started vancomycin since recent health care invasive procedure, await further culture sensitivities Acute Renal failure-->resolved, ,continue to-hold losartan potassium 50 mg by mouth daily. Continue doxazosin 4 mg by mouth at bedtime. Diabetes mellitus--hold metformin 1000 mg by mouth twice a day. Decrease glipizide ER 10 mg by mouth twice a day to 2.5 mg by mouth twice a day. improved or slightly high bsg's SSI Hypothyroidism-- clinically stable levothyroxine sodium 75 g by mouth daily. Peripheral neuropathy- gabapentin 300 mg by mouth twice a day. Hypercholesterolemia-- Crestor 10 mg by mouth daily. Depression/anxiety/Insomnia- Wellbutrin alprazolam 0.5 mg
[2016-09-06] MEDS ORDERED: NURSING VERBAL MED ORDER ONE (17:30)
[2016-09-06] MEDS: CEFTRIAXONE SOD INJ 1 GM in DEXTROSE 5% ADD-VANTAGE 50ML 50 ML IV SCH (22:00)
[2016-09-06] MEDS: ZOLPIDEM TARTRATE 5 MG TAB PO PRN (22:00)
[2016-09-06] MEDS: VANCOMYCIN INJ 1,250 MG in SODIUM CHLORIDE 0.9% 250ML 250 ML IV SCH (22:39)
[2016-09-07 00:17] VITALS: BP 138/85; PULSE 90; TEMP 37.1; O2SAT 97
[2016-09-07] MEDS: LEVOTHYROXINE 75 MCG TAB PO SCH (06:00)
[2016-09-07] MEDS: ACETAMINOPHEN 325 MG TAB PO PRN (06:05)
[2016-09-07 06:19] LABS: BASO % 0.1 %; BASO ABS # 0.01 K/uL (0-0.2); COMPLETE YES; EOS % 1.8 %; HEMATOCRIT 33.6 % (42-52); IG% 1.2 %; LYMPH % 16.1 %; LYMPH ABS # 1.44 K/uL (1.2-3.4); MEAN CELL VOLUME 94.6 fL (80-100); MEAN CORPUSCULAR HEMOGLOBIN 30.1 pg (25-34); MEAN CORPUSCULAR HGB CONC 31.8 g/dl (32-36); MEAN PLATELET VOLUME 9.3 fL (7.4-10.4); MONO % 11.2 %; NEUT % 69.6 %; PLATELET COUNT 287 K/uL (130-400); RED BLOOD COUNT 3.55 M/uL (4.7-6.1); WHITE BLOOD COUNT 8.96 K/uL (4.8-10.8)
[2016-09-07 06:56] LABS: BUN/CREATININE RATIO 13.7 (10-20); CALCIUM 8.8 mg/dl (8.5-10.1); MAGNESIUM 2.1 mg/dl (1.8-2.4); POTASSIUM 4.2 mmol/L (3.5-5.1)
[2016-09-07 07:16] VITALS: BP 125/81; PULSE 93; TEMP 37.2; O2SAT 96
--- NOTE | 2016-09-07 07:30 | Progress Note ---
Subjective Date of Service: September 07, 2016. Subjective pt is feeling better physically but very nervous about having to stay in hospital, I explained to him about the blood and urine culture showing the same organism and that we do not have final sensitivities. he has no voiding issues , no hematuria and fevers and aches have left Problem List Medical Problems: (1) Intractable abdominal pain Status: Acute (2) Right ureteral calculus Status: Acute (3) SIRS (systemic inflammatory response syndrome) Status: Acute (4) UTI (urinary tract infection) Status: Acute Review of Systems Constitutional: No chills, No fatigue, No fever, No weakness Respiratory: No cough, No dyspnea on exertion, No shortness of breath, No sputum Cardiac: No PND, No chest pain, No edema, No orthopnea Abdomen: No diarrhea, No nausea, No pain, No vomiting Musculoskeletal: No joint pain, No muscle pain, No swelling Male : No dysuria, No incontinence, No urinary frequency Psychiatric: No anhedonism, No depression symptoms Objective Vital Signs Date Time Temp Pulse Resp B/P Pulse Ox O2 Delivery O2 Flow Rate FiO2 09/07/16 07:16 37.2 93 18 125/81 96 09/07/16 00:17 37.1 90 19 138/85 97 Room Air 09/07/16 00:00 Room Air 09/06/16 19:30 Room Air 09/06/16 16:00 Room Air 09/06/16 14:53 36.9 91 18 127/77 99 Room Air 09/06/16 08:30 Room Air 09/06/16 07:43 37.2 101 18 132/83 93 Room Air Physical Exam General Appearance: WD/WN, no apparent distress Eyes: PERRL, EOMI Neck: supple, no JVD Respiratory/Chest: chest non-tender, lungs clear, normal breath sounds Cardiovascular: regular rate, rhythm, no murmur Abdomen: normal bowel sounds, non tender, soft Extremities: no pedal edema, no calf tenderness Neurologic/Psychiatric: alert, oriented x 3 Laboratory Results Last 24 Hours Test 09/06/16 07:55 09/06/16 11:30 09/06/16 16:46 09/06/16 20:36 Bedside Glucose 133 mg/dl 193 mg/dl 166 mg/dl 154 mg/dl Test 09/07/16 05:15 White Blood Count 8.96 K/uL Red Blood Count 3.55 M/uL Hemoglobin 10.7 g/dL Hematocrit 33.6 % Mean Corpuscular Volume 94.6 fL Mean Corpuscular Hemoglobin 30.1 pg Mean Corpuscular Hemoglobin Concent 31.8 g/dl Platelet Count 287 K/uL Mean Platelet Volume 9.3 fL Neutrophils (%) (Auto) 69.6 % Lymphocytes (%) (Auto) 16.1 % Monocytes (%) (Auto) 11.2 % Eosinophils (%) (Auto) 1.8 % Basophils (%) (Auto) 0.1 % Neutrophils # (Auto) 6.24 K/uL Lymphocytes # (Auto) 1.44 K/uL Monocytes # (Auto) 1.00 K/uL Eosinophils # (Auto) 0.16 K/uL Basophils # (Auto) 0.01 K/uL RDW Standard Deviation 45.5 fL RDW Coefficient of Variation 13.0 % Immature Granulocyte % (Auto) 1.2 % Immature Granulocyte # (Auto) 0.11 K/uL Sodium Level 141 mmol/L Potassium Level 4.2 mmol/L Chloride Level 105 mmol/L Carbon Dioxide Level 26 mmol/L Anion Gap 10.0 mmol/L Blood Urea Nitrogen 14 mg/dl Creatinine 1.00 mg/dl Est Creatinine Clear Calc Drug Dose 70.7 ml/min Estimated GFR () 86.2 Estimated GFR (Non- 74.3 BUN/Creatinine Ratio 13.7 Random Glucose 129 mg/dl Calcium Level 8.8 mg/dl Magnesium Level 2.1 mg/dl Assessment and Plan 71 M with recent urology intervention, here with fevers UTI/SIRS,/right ureteral stent ceftriaxone 1 g IV daily begun in the emergency department. Consult urology following not planning to take out stents. but this was before defined bacteremia and now possible valvular vegetation seen on TTE Blood culture shows one with gram positive, urine also shows staph, started vancomycin since recent health care invasive procedure, await further culture sensitivities, since bacteria in blood and urine is staph, ECHO may suggest possible vegetation valve, will have MARIBELL and eventually need to place picc line Acute Renal failure-->resolved, ,continue to-hold losartan, blood pressure has not needed, doxazosin 4 mg by mouth at bedtime. Diabetes mellitus--hold metformin 1000 mg by mouth twice a day(post contrast) . resume oral glipizide and continue ssi Hypothyroidism-- maintain levothyroxine sodium 75 g by mouth daily. Peripheral neuropathy- no issues gabapentin 300 mg by mouth twice a day. Hypercholesterolemia-- Crestor 10 mg by mouth daily. Depression/anxiety/Insomnia- Wellbutrin alprazolam 0.5 mg
[2016-09-07] MEDS ORDERED: NURSING DECISION MEDICATION ORDER SCH (08:45)
[2016-09-07] MEDS: GABAPENTIN 300 MG CAP PO SCH ×2 (08:54→21:15)
[2016-09-07] MEDS: DOXAZosin MESYLATE TAB 4 MG TAB PO SCH ×2 (08:54→21:15)
[2016-09-07] MEDS: DOCUSATE SODIUM 100 MG CAP PO SCH ×2 (08:55→21:14)
[2016-09-07] MEDS: BuPROPion XL 300 MG TABCR PO SCH ×2 (08:55→21:15)
[2016-09-07] MEDS: POLYETHYLENE (MIRALAX) 17 GM PACK PO SCH (08:56)
[2016-09-07] MEDS: INSULIN ASPART 100 UNITS/ML 3 ML PEN SC SCH ×4 (08:58→21:17)
[2016-09-07] MEDS: VANCOMYCIN INJ 1,250 MG in SODIUM CHLORIDE 0.9% 250ML 250 ML IV SCH ×2 (10:05→22:12)
--- NOTE | 2016-09-07 14:16 | ECHOCARDIOGRAM REPORT ---
*NOTICE TO RECEIVING CONSTITUTION PARTY AGENCY This information is strictly Confidential and protected under [place] law. [place] law prohibits you from making any further disclosure of this information unless further disclosure is expressly permitted by the written consent of the person to whom it pertains or is authorized by law. A general authorization for the release of medical or other information is not sufficient for this purpose. Hospital accepts no responsibility if the information is made available to any other person, INCLUDING THE PATIENT. Interpretation Summary * Name: JIMBO QUINTANILLA Study Date: 09/07/2016 09:08 AM BP: 125/81 mmHg * Patient Location: C.4E\S\E408\S\1 HR: 88 * : 1945 (M/d/yyyy) Gender: Male Height: 67 in * Age: 71 yrs Ethnicity: [place] Weight: 199 lb * Ordering Physician: Luiz Abdi * Referring Physician: Naveen Mckeon * Performed By: Keven Rothman RDCS * * Reason For Study: Bacteremia * BSA: 2.0 m2 * -- Conclusions -- * 1. Normal LV size. Mild concentric LVH. * 2. Normal overall LV systolic function. LVEF 60-65%. Posterior wall akinesis, moderate inferior hypokinesis. * 3. Grade I diastolic dysfunction. * 4. Normal RV size and function. * 5. Possible vegetation involving tricuspid valve. Consider MARIBELL if clinical suspicion warrants. No other significant valvular pathology. * 6. Normal estimated RA and PA pressures. * 7. No other prior studies for comparison. Procedure Details * A complete two-dimensional transthoracic echocardiogram was performed (2D, M-mode, Doppler and color flow Doppler). * The study was technically adequate. Left Ventricle * The left ventricle is grossly normal size. * There is mild concentric left ventricular hypertrophy. * Ejection Fraction = 60-65%. * There is posterior wall akinesis. * There is moderate inferior wall hypokinesis. Right Ventricle * The right ventricle is grossly normal size. * The right ventricular systolic function is normal as assessed by tricuspid annular plane systolic excursion (TAPSE) (normal >1.5 cm). Atria * Borderline left atrial enlargement. * Right atrial size is normal. * No ASD detected; PFO is not assessed. Mitral Valve * The mitral valve is grossly normal. * There is mild mitral annular calcification. * There is no mitral valve stenosis. * Significant mitral regurgitation is absent. Tricuspid Valve * A tricuspid valve vegetation cannot be excluded. * There is no tricuspid stenosis. * There is trace tricuspid regurgitation. Aortic Valve * The aortic valve opens well. * The aortic valve is trileaflet. * No hemodynamically significant valvular aortic stenosis. * There is no significant aortic regurgitation. Pulmonic Valve * The pulmonary valve is inadequately visualized, but the Doppler data is adequate for interpretation. * There is no pulmonic valvular stenosis. * There is no significant pulmonary regurgitation. Great Vessels * The aortic root and proximal ascending aorta are normal sized. Pericardium/Pleural * There is no pericardial effusion. Great Vessels * Normal inferior vena cava size and collapsability with sniff indicates a normal right atrial pressure of 3 mmHg Left Ventricular Diastolic Function * Grade I diastolic dysfunction, (abnormal relaxation pattern). MMode 2D Measurements and Calculations IVSd 1.4 cm IVSs 1.9 cm LVIDd 5.3 cm LVIDs 3.2 cm LVPWd 1.3 cm LVPWs 1.5 cm IVS/LVPW 1.1 FS 38.4 % EDV(Teich) 132.5 ml ESV(Teich) 42.1 ml EF(Teich) 68.2 % EDV(cubed) 144.9 ml ESV(cubed) 33.9 ml EF(cubed) 76.6 % % IVS thick 31.7 % % LVPW thick 11.7 % LV mass(C)d 300.5 grams LV mass(C)dI 148.9 grams/m\S\2 LV mass(C)s 206.1 grams LV mass(C)sI 102.1 grams/m\S\2 SV(Teich) 90.4 ml SI(Teich) 44.8 ml/m\S\2 SV(cubed) 111.0 ml SI(cubed) 55.0 ml/m\S\2 EPSS 0.68 cm Ao root diam 3.4 cm Ao root area 9.3 cm\S\2 ACS 1.8 cm LA dimension 4.1 cm asc Aorta Diam 3.5 cm LA/Ao 1.2 LVAd ap4 29.4 cm\S\2 LVLd ap4 8.2 cm EDV(MOD-sp4) 85.0 ml LVAs ap4 16.1 cm\S\2 LVLs ap4 7.1 cm ESV(MOD-sp4) 30.0 ml EF(MOD-sp4) 64.7 % LVAd ap2 24.7 cm\S\2 LVLd ap2 7.5 cm EDV(MOD-sp2) 69.0 ml LVAs ap2 13.2 cm\S\2 LVLs ap2 6.6 cm ESV(MOD-sp2) 23.0 ml EF(MOD-sp2) 66.7 % SV(MOD-sp4) 55.0 ml SI(MOD-sp4) 27.3 ml/m\S\2 SV(MOD-sp2) 46.0 ml SI(MOD-sp2) 22.8 ml/m\S\2 Doppler Measurements and Calculations MV E max michael 87.9 cm/sec MV A max michael 127.3 cm/sec MV E/A 0.69 MV dec time 0.14 sec Ao V2 max 167.2 cm/sec Ao max PG 11.2 mmHg Ao max PG (full) 5.3 mmHg LV V1 max PG 5.9 mmHg LV V1 max 121.1 cm/sec PA V2 max 134.8 cm/sec PA max PG 7.3 mmHg
[2016-09-07] MEDS ORDERED: LORAZEPAM 2 MG/ML 1 ML VIAL IV PRN (14:45)
[2016-09-07] MEDS ORDERED: LORAZEPAM INJ 0.5 MG in SYRINGE 0.75 ML IV PRN (14:45)
[2016-09-07 14:55] VITALS: BP 129/78; PULSE 99; TEMP 37.3; O2SAT 97
[2016-09-07] MEDS: ALPRAZOLAM 0.5 MG TAB PO PRN (19:13)
[2016-09-07] MEDS: CEFTRIAXONE SOD INJ 1 GM in DEXTROSE 5% ADD-VANTAGE 50ML 50 ML IV SCH (21:24)
[2016-09-07] MEDS: ZOLPIDEM TARTRATE 5 MG TAB PO PRN (22:26)
[2016-09-07 23:36] VITALS: BP 148/91; PULSE 87; TEMP 37; O2SAT 95
[2016-09-08] MEDS: ALPRAZOLAM 0.5 MG TAB PO PRN ×2 (05:21→17:11)
[2016-09-08] MEDS: ACETAMINOPHEN 325 MG TAB PO PRN (05:32)
[2016-09-08 05:41] LABS: CREATININE 1.2 mg/dl (0.60-1.40)
[2016-09-08] MEDS: LEVOTHYROXINE 75 MCG TAB PO SCH (06:38)
[2016-09-08 07:17] VITALS: BP 119/79; PULSE 92; TEMP 36.9
[2016-09-08] MEDS: DOCUSATE SODIUM 100 MG CAP PO SCH ×2 (08:16→20:00)
[2016-09-08] MEDS: GABAPENTIN 300 MG CAP PO SCH ×2 (08:16→20:05)
[2016-09-08] MEDS: POLYETHYLENE (MIRALAX) 17 GM PACK PO SCH (08:17)
[2016-09-08] MEDS: BuPROPion XL 300 MG TABCR PO SCH ×2 (08:17→20:05)
[2016-09-08] MEDS: INSULIN ASPART 100 UNITS/ML 3 ML PEN SC SCH ×4 (09:16→20:13)
--- NOTE | 2016-09-08 09:20 | Progress Note ---
Subjective Date of Service: September 08, 2016. Subjective this pt is markedly anxious but otherwise has no concerns or complaints, no other issues. is updated at bedside Problem List Medical Problems: (1) Intractable abdominal pain Status: Acute (2) Right ureteral calculus Status: Acute (3) SIRS (systemic inflammatory response syndrome) Status: Acute (4) UTI (urinary tract infection) Status: Acute Review of Systems Constitutional: No chills, No fever Respiratory: No cough, No dyspnea on exertion, No shortness of breath Cardiac: No chest pain, No edema Abdomen: No diarrhea, No nausea, No pain, No vomiting Musculoskeletal: No joint pain, No muscle pain Male : No dysuria, No urinary frequency Psychiatric: No anhedonism, No depression symptoms Objective Vital Signs Date Time Temp Pulse Resp B/P Pulse Ox O2 Delivery O2 Flow Rate FiO2 09/08/16 08:00 Room Air 09/08/16 07:17 36.9 92 20 119/79 Room Air 96.0 09/07/16 23:59 Room Air 09/07/16 23:36 37.0 87 19 148/91 95 Room Air 09/07/16 16:15 Room Air 09/07/16 14:55 37.3 99 18 129/78 97 Room Air Physical Exam General Appearance: WD/WN, no apparent distress Eyes: PERRL, EOMI Neck: supple, no JVD Respiratory/Chest: chest non-tender, lungs clear, normal breath sounds Cardiovascular: regular rate, rhythm, no murmur Abdomen: normal bowel sounds, non tender, soft, no organomegaly Extremities: no pedal edema, no calf tenderness Neurologic/Psychiatric: alert, oriented x 3 Laboratory Results Last 24 Hours Test 09/07/16 11:32 09/07/16 16:26 09/07/16 19:54 09/08/16 04:43 Bedside Glucose 228 mg/dl 109 mg/dl 237 mg/dl Creatinine 1.20 mg/dl Est Creatinine Clear Calc Drug Dose 58.9 ml/min Estimated GFR () 69.1 Estimated GFR (Non- 59.6 Test 09/08/16 07:24 Bedside Glucose 180 mg/dl Assessment and Plan 71 M with recent urology intervention, here with fevers, found to have sepsis, mssa, and concern for valvular vegetation on TTE UTI/Sepsis,/right ureteral stent ceftriaxone 1 g IV daily begun in the emergency department. Consult urology following not planning to take out stents. but this was before defined bacteremia and now possible valvular vegetation seen on TTE, plans for MARIBELL this week, consult ID for duration of treatment once MARIBELL complete, change antibiotics to ancef 2 gms q 8 Blood culture shows one with gram positive, urine also shows staph,improved wbc and staph is MSSA started vancomycin since recent health care invasive procedure , ECHO may suggest possible vegetation valve, will have MARIBELL and eventually need to place picc line once repeat cultures are negative Acute Renal failure-->resolved, ,continue to-hold losartan, blood pressure has not needed, doxazosin 4 mg by mouth at bedtime. Diabetes mellitus--control is variable, hold metformin 1000 mg by mouth twice a day(post contrast) . resume oral glipizide and continue ssi Hypothyroidism-- seems clinically stable, levothyroxine sodium 75 g by mouth daily. Peripheral neuropathy-stable gabapentin 300 mg by mouth twice a day. Hypercholesterolemia-- Crestor 10 mg by mouth daily. Depression/anxiety/Insomnia- Wellbutrin alprazolam 0.5 mg anxiety has increased since diagnoses are unfolding
[2016-09-08] MEDS ORDERED: VANCOMYCIN TROUGH SCH (09:30)
[2016-09-08] MEDS: CEFAZOLIN IV 2,000 MG in DEXTROSE 5% 50ML 50 ML IV SCH ×2 (10:29→18:28)
--- NOTE | 2016-09-08 11:01 | Progress Note ---
Subjective Date of Service: September 08, 2016. Subjective Pt evaluation today including: conversation w/ patient, physical exam, chart review, lab review, review of studies pt feels well . Echo showed possible growth on valve with option of MARIBELL given if clinically warrented. Pt does have staph in urine and on one blood culture although the resistance profile for the two are different . 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 Problem List Medical Problems: (1) Intractable abdominal pain Status: Acute (2) Right ureteral calculus Status: Acute (3) SIRS (systemic inflammatory response syndrome) Status: Acute (4) UTI (urinary tract infection) Status: Acute Objective Vital Signs Date Time Temp Pulse Resp B/P Pulse Ox O2 Delivery O2 Flow Rate FiO2 09/08/16 08:00 Room Air 09/08/16 07:17 36.9 92 20 119/79 Room Air 96.0 09/07/16 23:59 Room Air 09/07/16 23:36 37.0 87 19 148/91 95 Room Air 09/07/16 16:15 Room Air 09/07/16 14:55 37.3 99 18 129/78 97 Room Air Laboratory Results Last 24 Hours Test 09/07/16 11:32 09/07/16 16:26 09/07/16 19:54 09/08/16 04:43 Bedside Glucose 228 mg/dl 109 mg/dl 237 mg/dl Creatinine 1.20 mg/dl Est Creatinine Clear Calc Drug Dose 58.9 ml/min Estimated GFR () 69.1 Estimated GFR (Non- 59.6 Test 09/08/16 07:24 09/08/16 09:30 Bedside Glucose 180 mg/dl Vancomycin Level Trough 15.6 mcg/ml Assessment and Plan Ok for discharge from [facility] . Will defer to cardiology ,hospitalists and possibly ID to decide if he needs antibiotics for his heart
[2016-09-08 14:53] VITALS: BP 122/76; PULSE 84; TEMP 36.9; O2SAT 97
[2016-09-08] MEDS: DOXAZosin MESYLATE TAB 4 MG TAB PO SCH (20:05)
--- NOTE | 2016-09-08 21:33 | Medical Consult ---
Consultation Date of Consultation: September 08, 2016. Attending Physician: Luiz Abdi M.D. 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 Patient did well until 4 days prior to admission when he noted onset of fever and chills, Associated with nausea without vomiting, then episode of hematuria. He was readmitted to the hospital, has now been found to have positive blood and urine cultures for methicillin sensitive Staph aureus. Initially treated with IV ceftriaxone. He underwent transthoracic echocardiogram which raise the question of possible tricuspid valve vegetation. Therapy change to IV cefazolin. Patient feeling better since admission. Currently afebrile. White blood cell count has improved from 12,000, now normal. Hemodynamically stable overnight. Past Medical/Surgical History Medical Problems: (1) Intractable abdominal pain Status: Acute (2) Right ureteral calculus Status: Acute (3) SIRS (systemic inflammatory response syndrome) Status: Acute (4) UTI (urinary tract infection) Status: Acute Medical Problems: (1) CAD (coronary artery disease) (2) Diabetes (3) Idiopathic stricture of urethra (4) S/P lumbar spinal fusion (5) Urethral stricture Surgical Problems: (1) H/O angioplasty Family History No pertinent family history Social History Smoking Status: Unknown if Ever Smoked Smokeless Tobacco Use: No Alcohol Use: none Drug Use: none Marital Status: Housing Status: lives with significant other Occupation Status: retired Allergies Coded Allergies: Codeine (Unverified Allergy, Unknown, GI SYMPTOMS, 08/22/16) Sitagliptin (Unverified Allergy, Unknown, GI SYMPTOMS, 08/22/16) Current Inpatient Medications Current Inpatient Medications Medications (Trade) Dose Ordered Sig/Sherry Route Start Time Stop Time Status Last Admin Dose Admin Acetaminophen (Tylenol Tab) 650 mg Q4H PRN PO 09/05/16 00:45 10/05/16 00:44 09/08/16 05:32 650 MG Ondansetron HCl (Zofran Inj) 4 mg Q6H PRN IV 09/05/16 00:45 10/05/16 00:44 09/05/16 19:52 4 MG Insulin Aspart (novoLOG ASPART) SLIDING SCALE If C... ACHS SC 09/05/16 06:30 10/05/16 06:59 09/08/16 20:13 2 UNITS Glucose (Glucose Chew Tab) 1 tabs UD PRN PO 09/05/16 00:45 10/05/16 00:44 Dextrose (Dextrose 50% 50ML Syringe) 50 ml UD PRN IV 09/05/16 00:45 10/05/16 00:44 Glucagon 1 mg 1 mg UD PRN SQ 09/05/16 00:45 10/05/16 00:44 Acetaminophen (Ofirmev Iv) 100 ml @ 400 mls/hr Q8H PRN IV 09/05/16 00:45 10/05/16 00:44 Glucose (Glucose 40% Gel) UD PRN PO 09/05/16 00:45 10/05/16 00:44 Morphine Sulfate (MoRPHine SULFATE INJ) 2 mg Q2H PRN IV 09/05/16 00:45 09/19/16 00:44 Morphine Sulfate (MoRPHine SULFATE INJ) 4 mg Q2H PRN IV 09/05/16 00:45 09/19/16 00:44 Alprazolam (Xanax Tab) 0.5 mg TID PRN PO 09/05/16 00:45 10/05/16 00:44 09/08/16 17:11 0.5 MG Bupropion HCl (Wellbutrin-Xl Tab) 300 mg BID PO 09/05/16 08:00 10/05/16 08:59 09/08/16 20:05 300 MG Docusate Sodium (coLACE CAP) 100 mg BID PO 09/05/16 08:00 10/05/16 08:59 09/08/16 08:16 100 MG Fluticasone Propionate (Flonase Nasal Bruno) 1 sprays DAILY PRN CHUCKY 09/05/16 08:00 10/05/16 07:59 Gabapentin (Neurontin Cap) 300 mg BID PO 09/05/16 08:00 10/05/16 08:59 09/08/16 20:05 300 MG Acetaminophen/ Hydrocodone Bitart ([place] 5/325 Tab) 1 tab Q4 PRN PO 09/05/16 00:45 09/19/16 00:44 Levothyroxine Sodium (Synthroid Tab) 75 mcg DAILYBB PO 09/05/16 06:30 10/05/16 06:29 09/08/16 06:38 75 MCG Nitroglycerin (Nitrostat Tab) 0.4 mg UD SL 09/05/16 00:45 10/05/16 00:44 Zolpidem Tartrate (Ambien Tab) 10 mg HSZ PRN PO 09/05/16 22:00 10/05/16 21:59 09/07/16 22:26 10 MG Polyethylene (Miralax Powder Packet) 17 gm DAILY PO 09/06/16 08:00 10/06/16 07:59 09/08/16 08:17 17 GM Glipizide (Glucotrol Tab) 10 mg BIDM PO 09/06/16 17:00 10/06/16 16:59 09/08/16 17:53 10 MG Doxazosin Mesylate (Cardura Tab) 4 mg HS PO 09/07/16 21:00 10/07/16 20:59 09/08/16 20:05 4 MG Lorazepam (Ativan Tab) 0.5 mg Q6 PRN PO 09/07/16 14:45 10/07/16 14:44 Lorazepam 0.5 mg 0.5 mg Q4H PRN IV 09/07/16 14:45 10/07/16 14:44 Lorazepam 0.5 mg/ Syringe 1 ml @ 1 mls/min Q4H PRN IV 09/07/16 14:45 10/07/16 14:44 Cefazolin Sodium/ Dextrose (Ancef Iv/D5 50ml) 60 ml @ 100 mls/hr Q8H IV 09/08/16 10:00 10/20/16 09:29 09/08/16 18:28 100 MLS/HR Review of Systems Constitutional: + chills, + fever, + weakness Eyes: No problem reported ENT: No problem reported Respiratory: No problem reported Cardiovascular: No problem reported Abdomen: + nausea ( S get better on time clean up cancer and) Musculoskeletal: No problem reported Genitourinary - Male: + hematuria Neurologic: No problem reported Psychiatric: No problem reported Endocrine: No problem reported Hematologic / Lymphatic: No problem reported Integumentary: No problem reported Allergic / Immunologic: No problem reported Physical Exam Date Time Temp Pulse Resp B/P Pulse Ox O2 Delivery O2 Flow Rate FiO2 09/08/16 20:00 Room Air 09/08/16 15:25 Room Air 09/08/16 14:53 36.9 84 18 122/76 97 Room Air 09/08/16 08:00 Room Air 09/08/16 07:17 36.9 92 20 119/79 Room Air 96.0 09/07/16 23:59 Room Air 09/07/16 23:36 37.0 87 19 148/91 95 Room Air General Appearance: WD/WN, no apparent distress Head: normocephalic, atraumatic Eyes: normal inspection, EOMI, sclerae normal ENT: normal ENT inspection, hearing grossly normal, pharynx normal Neck: supple, no adenopathy, thyroid normal, trachea midline Respiratory/Chest: chest non-tender, lungs clear, normal breath sounds, no respiratory distress Cardiovascular: regular rate, rhythm, no gallop, no murmur Abdomen/GI: normal bowel sounds, non tender, soft, no organomegaly Back: normal inspection, no CVA tenderness Extremities/Musculoskelatal: no calf tenderness, non-tender Neurologic/Psych: alert, oriented x 3 Skin: normal color, warm/dry, no rash Lymphatic: no adenopathy Laboratory Results RUN DATE: 09/07/16 [facility] LAB PAGE 1 RUN TIME: 724 Specimen Inquiry PATIENT: JIMBO QUINTANILLA Hans LOC: [place] # : [id number] AGE/SX: 71/M ROOM: E408 REG : 09/05/[address]: Luiz Abdi M : 1945 BED: 1 DIS : STATUS: ADM IN TLOC: SPEC #: [id number] NICHOLAS: 09/04/16 STATUS: RES REQ #: [id number] RECD: 09/04/[address]: Titus Urena DO SOURCE: BLOOD ENTR: 09/04/[address]: Oumar Culp M.D. [facility]: Naveen Mckeon M.D. ORDERED: BLOOD CULTURE Procedure Result Verified Site BLD CULT Preliminary 09/07/16-724 Organism 1 STAPHYLOCOCCUS AUREUS SENS SENSITIVITY TO FOLLOW Phoned Positive Blood Culture Gram Stain Report to AIXA URENA on 09/05/16 At 2252 By [employer]. Results were verbalized back to [employer]. 1. STAPHYLOCOCCUS AUREUS Target Route Dose RX AB Cost M.I.C. IQ ------ ----- ------ -- ------ -------- - ------ TRIMET/SULFA S <=0.5/ 9.5 * OXACILLIN S <=0.25 VANCOMYCIN S 2 ERYTHROMYCIN R >4 TETRACYCLINE S <=4 CLINDAMYCIN R <=0.5 DAPTOMYCIN S 1 S = SENSITIVE I = INTERMEDIATE R = RESISTANT Last 24 Hours Test 09/08/16 04:43 09/08/16 07:24 09/08/16 09:30 09/08/16 11:16 Creatinine 1.20 mg/dl Est Creatinine Clear Calc Drug Dose 58.9 ml/min Estimated GFR () 69.1 Estimated GFR (Non- 59.6 Bedside Glucose 180 mg/dl 242 mg/dl Vancomycin Level Trough 15.6 mcg/ml Test 09/08/16 16:52 09/08/16 20:08 Bedside Glucose 99 mg/dl 199 mg/dl Patient Name: JIMBO QUINTANILLA Unit Number: [id number] Dictated: 09/05/16634 Transcribed: 09/05/16634 ARG Printed Date/Time: [~ rep prt dt]/[~ rep prt tm] [~ rep ct labl] - [~ rep ct ivnm] [facility] [place] [address] Dictated: 09/05/16634 Transcribed: 09/05/16634 ARG Printed Date/Time: [~ rep prt dt]/[~ rep prt tm] [~ rep ct labl] - [~ rep ct ivnm] CT SCAN OF THE ABDOMEN AND PELVIS WITHOUT CONTRAST CLINICAL HISTORY: Sepsis. Right nephroureteral stent. COMPARISON STUDY: 09-04 TECHNIQUE: CT scan of the abdomen and pelvis was performed from the lung bases to the proximal femurs. Images are reviewed in the axial, sagittal, and coronal planes. IV contrast was not administered for this examination. CT DOSE: 845.19 mGy.cm FINDINGS: Lower chest: There are coronary artery calcifications present. Liver: The unenhanced liver is normal in size, contour, and attenuation. There is no intrahepatic biliary ductal dilatation. Gallbladder: Unremarkable. Spleen: Normal in size and attenuation. Pancreas: Unremarkable. Adrenal glands: Unremarkable. Kidneys: There is a nonobstructing 4 mm lower pole left renal calculus. Multiple right renal calculi are visualized measuring up to 2.5 mm in diameter. There is a right-sided nephroureteral stent present. No calculi are visualized along the course of the stent. There are no bladder calculi. There is no significant hydronephrosis. Bowel: There are no transition zones indicate bowel obstruction. There is colonic diverticulosis. There are no acute peridiverticular inflammatory changes. There is no evidence of acute appendicitis. Peritoneum: There is no intraperitoneal free air or abdominal ascites. Vasculature: The abdominal aorta is normal in course and caliber. Adenopathy: None. Pelvic viscera: The bladder, and pelvic viscera are unremarkable. Skeletal structures: Postsurgical changes are present within the lumbar spine. IMPRESSION: 1. Bilateral nephrolithiasis 2. Interval placement of a right-sided nephroureteral stent 3. No evidence of bowel obstruction. No evidence of free air 4. Diverticulosis. No evidence of acute diverticulitis. 5. No evidence of acute appendicitis. Electronically signed by: Jairo Kenny M.D. 09/05/2016 6:39 AM Dictated Date/Time: 09/05/2016 6:35 AM The status of this report is Signed. Draft = Not yet reviewed or approved by Radiologist. Signed = Reviewed and approved by Radiologist. <AttendingPhy>Lux Ying M.D.</AttendingPhy> <FamilyPhy>Oumar Culp M.D.</FamilyPhy> <PrimaryPhy>Oumar Culp M.D.</PrimaryPhy> <UnitNumber> [id number]</UnitNumber> <VisitNumber>[id number]</VisitNumber> <PatientName> JIMBO QUINTANILLA Hans</PatientName> <DateOfBirth>1945</DateOfBirth> <Location> C.4E</Location> <ServiceDate>09/04/16</ServiceDate> <MNE>ESINDI</MNE> < OrderingPhy>Titus Urena DO</OrderingPhy> <OrderingPhyMNE>f rep ord dr guerra</ OrderingPhyMNE> <DictatingPhyMNE>f rep dict dr guerra</DictatingPhyMNE> <CCListMNE> f rep ct mne</CCListMNE> <AdmittingPhyMNE>f pt admit dr guerra</AdmittingPhyMNE> < AttendingPhyMNE>f pt attend dr guerra</AttendingPhyMNE> <ConsultingPhyMNE>f pt consult dr guerra</ConsultingPhyMNE> <FamilyPhyMNE>f pt fam dr guerra</FamilyPhyMNE> <OtherPhyMNE>f pt other dr guerra</OtherPhyMNE> < PrimaryPhyMNE>f pt prim care dr guerra</PrimaryPhyMNE> <ReferringPhyMNE>f pt referring dr guerra</ReferringPhyMNE> Assessment & Plan 71-year-old male status post ureteral stenting and lithotripsy for obstructive uropathy from stone disease, 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 Agree with change to IV cefazolin, and would obtain transesophageal echocardiogram if possible to help define length of therapy and further management. Will discuss with all involved, we will follow patient.
[2016-09-08] MEDS: ZOLPIDEM TARTRATE 5 MG TAB PO PRN (22:49)
[2016-09-08 23:40] VITALS: BP 148/88; PULSE 110; TEMP 37; O2SAT 95
[2016-09-08] MEDS: LORAZEPAM 0.5 MG TAB PO PRN (23:44)
[2016-09-09] VITALS (11 sets, daily range): BP systolic 118–180; BP diastolic 63–88; PULSE 86–103; TEMP 37–37.1; O2SAT 95–98
[2016-09-09] MEDS: CEFAZOLIN IV 2,000 MG in DEXTROSE 5% 50ML 50 ML IV SCH ×3 (01:53→18:03)
[2016-09-09] MEDS: LEVOTHYROXINE 75 MCG TAB PO SCH (05:59)
[2016-09-09] MEDS: GABAPENTIN 300 MG CAP PO SCH ×2 (08:32→20:00)
[2016-09-09] MEDS: BuPROPion XL 300 MG TABCR PO SCH ×2 (08:33→20:02)
[2016-09-09] MEDS: DOCUSATE SODIUM 100 MG CAP PO SCH ×2 (08:33→20:01)
[2016-09-09] MEDS: POLYETHYLENE (MIRALAX) 17 GM PACK PO SCH (08:34)
[2016-09-09] MEDS: ALPRAZOLAM 0.5 MG TAB PO PRN (08:38)
[2016-09-09] MEDS: INSULIN ASPART 100 UNITS/ML 3 ML PEN SC SCH ×4 (08:48→20:53)
--- NOTE | 2016-09-09 09:32 | Clinical Documentation Query ---
CLINICAL DOCUMENTATION QUERY Dr. RAMIREZ, In your clinical opinion is this patient being managed for: ( ) possible/suspected Acute/subacute endocarditis, POA ( ) Other explanation of clinical findings (Please Explain) ( ) Unable to determine (Please Define) ( ) Need to Discuss ( ) Not Agree The medical record reflects the following clinical findings, treatment, and risk factors. Clinical Indicators: 71 yo male presenting with a fever and found to have MSSA in blood and urine cx. ECHO indicates possible vegetation involving tricuspid valve. Attending documentation only documented as possible valvular vegetation. Treatment: ID consult, change to IV cefazolin, MARIBELL pending Risk Factors: age, recent ureteral stenting and lithotripsy, UTI, sepsis, DM Please clarify and document your clinical opinion in the progress notes and discharge summary. Terms such as "probable", "suspected", "likely", "questionable", "possible", or "still to be ruled out" are acceptable. IF IN AGREEMENT, YOU MUST DOCUMENT ABOVE DIAGNOSTIC STATEMENT IN DAILY PROGRESS NOTES AND DISCHARGE SUMMARY. This document is not part of the patient's record. Thank You, Felicia Grimaldo RN [phone]
--- NOTE | 2016-09-09 10:19 | Infectious Disease Progress Nt ---
Progress Note Date of Service September 09, 2016. Subjective Pt evaluation today including: conversation w/ patient, physical exam, chart review, lab review, review of studies, conversation w/ rehabilitation consultant, review of inpatient medication list Angry and frustated, but otherwise feeling well. Tolerating Abx. Remains afebrile, hemodynamically stable. Follow-up blood cultures negative to date. All Other Systems: Reviewed and Negative Medications Current Inpatient Medications Medications (Trade) Dose Ordered Sig/Sherry Route Start Time Stop Time Status Last Admin Dose Admin Acetaminophen (Tylenol Tab) 650 mg Q4H PRN PO 09/05/16 00:45 10/05/16 00:44 09/08/16 05:32 650 MG Ondansetron HCl (Zofran Inj) 4 mg Q6H PRN IV 09/05/16 00:45 10/05/16 00:44 09/05/16 19:52 4 MG Insulin Aspart (novoLOG ASPART) SLIDING SCALE If C... ACHS SC 09/05/16 06:30 10/05/16 06:59 09/09/16 08:48 7 UNITS Glucose (Glucose Chew Tab) 1 tabs UD PRN PO 09/05/16 00:45 10/05/16 00:44 Dextrose (Dextrose 50% 50ML Syringe) 50 ml UD PRN IV 09/05/16 00:45 10/05/16 00:44 Glucagon 1 mg 1 mg UD PRN SQ 09/05/16 00:45 10/05/16 00:44 Acetaminophen (Ofirmev Iv) 100 ml @ 400 mls/hr Q8H PRN IV 09/05/16 00:45 10/05/16 00:44 Glucose (Glucose 40% Gel) UD PRN PO 09/05/16 00:45 10/05/16 00:44 Morphine Sulfate (MoRPHine SULFATE INJ) 2 mg Q2H PRN IV 09/05/16 00:45 09/19/16 00:44 Morphine Sulfate (MoRPHine SULFATE INJ) 4 mg Q2H PRN IV 09/05/16 00:45 09/19/16 00:44 Alprazolam (Xanax Tab) 0.5 mg TID PRN PO 09/05/16 00:45 10/05/16 00:44 09/09/16 08:38 0.5 MG Bupropion HCl (Wellbutrin-Xl Tab) 300 mg BID PO 09/05/16 08:00 10/05/16 08:59 09/09/16 08:33 300 MG Docusate Sodium (coLACE CAP) 100 mg BID PO 09/05/16 08:00 10/05/16 08:59 09/09/16 08:33 100 MG Fluticasone Propionate (Flonase Nasal [place]) 1 sprays DAILY PRN CHUCKY 09/05/16 08:00 10/05/16 07:59 Gabapentin (Neurontin Cap) 300 mg BID PO 09/05/16 08:00 10/05/16 08:59 09/09/16 08:32 300 MG Acetaminophen/ Hydrocodone Bitart ([place] 5/325 Tab) 1 tab Q4 PRN PO 09/05/16 00:45 09/19/16 00:44 Levothyroxine Sodium (Synthroid Tab) 75 mcg DAILYBB PO 09/05/16 06:30 10/05/16 06:29 09/09/16 05:59 75 MCG Nitroglycerin (Nitrostat Tab) 0.4 mg UD SL 09/05/16 00:45 10/05/16 00:44 Zolpidem Tartrate (Ambien Tab) 10 mg HSZ PRN PO 09/05/16 22:00 10/05/16 21:59 09/08/16 22:49 10 MG Polyethylene (Miralax Powder Packet) 17 gm DAILY PO 09/06/16 08:00 10/06/16 07:59 09/08/16 08:17 17 GM Glipizide (Glucotrol Tab) 10 mg BIDM PO 09/06/16 17:00 10/06/16 16:59 09/09/16 08:33 10 MG Doxazosin Mesylate (Cardura Tab) 4 mg HS PO 09/07/16 21:00 10/07/16 20:59 09/08/16 20:05 4 MG Lorazepam (Ativan Tab) 0.5 mg Q6 PRN PO 09/07/16 14:45 10/07/16 14:44 09/08/16 23:44 0.5 MG Lorazepam 0.5 mg 0.5 mg Q4H PRN IV 09/07/16 14:45 10/07/16 14:44 Lorazepam 0.5 mg/ Syringe 1 ml @ 1 mls/min Q4H PRN IV 09/07/16 14:45 10/07/16 14:44 Cefazolin Sodium/ Dextrose (Ancef Iv/D5 50ml) 60 ml @ 100 mls/hr Q8H IV 09/08/16 10:00 10/20/16 09:29 09/09/16 09:57 100 MLS/HR Objective Vital Signs Date Time Temp Pulse Resp B/P Pulse Ox O2 Delivery O2 Flow Rate FiO2 09/09/16 07:37 37.1 93 19 118/77 95 Room Air 09/09/16 00:00 Room Air 09/08/16 23:40 37.0 110 20 148/88 95 Room Air 09/08/16 20:00 Room Air 09/08/16 15:25 Room Air 09/08/16 14:53 36.9 84 18 122/76 97 Room Air Physical Exam General Appearance: WD/WN, no apparent distress Eyes: normal inspection, EOMI, sclerae normal ENT: normal ENT inspection, hearing grossly normal, pharynx normal Neck: supple, no adenopathy, trachea midline Respiratory/Chest: chest non-tender, lungs clear, normal breath sounds, no respiratory distress Cardiovascular: regular rate, rhythm, no gallop, no murmur Abdomen: normal bowel sounds, non tender, soft, no organomegaly Extremities: non-tender, no calf tenderness Neurologic/Psychiatric: alert, oriented x 3 Skin: normal color, warm/dry, no rash Lymphatic: no adenopathy Laboratory Results RUN DATE: 09/09/16 [facility] LAB PAGE 1 RUN TIME: 654 Specimen Inquiry PATIENT: VALORIS,JIMBO W LOC: [facility] U # : [id number] AGE/SX: 71/M ROOM: E408 REG : 09/05/[address]: Luiz Abdi M : 1945 BED: 1 DIS : STATUS: ADM IN TLOC: SPEC #: [id number] NICHOLAS: 09/07/16 STATUS: RES REQ #: [id number] RECD: 09/07/[address]: Luiz Abdi M.D. SOURCE: BLOOD ENTR: 09/07/16 [facility] DR: Oumar Culp M.D. SPDC: Lux Ying M.D., Christopher T. M.D. ORDERED: BLOOD CULTURE Procedure Result Verified Site BLD CULT Preliminary 09/09/16 NO GROWTH TO DATE. 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 Appears to be clearing with IV Abx. Patient to be continued for now on IV cefazolin pending results of MARIBELL which will help determine length of therapy. May ultimately need to change to once-daily antibiotic if outpatient therapy necessary. Will follow.
[2016-09-09] MEDS: LORAZEPAM 0.5 MG TAB PO PRN (12:13)
[2016-09-09] MEDS ORDERED: MIDAZOLAM HCL 1 MG/ML 2ML VIAL ONE (14:34)
[2016-09-09] MEDS ORDERED: FENTANYL CITRATE INJ 50 MCG/1 ML 2 ML VIAL ONE (14:34)
--- NOTE | 2016-09-09 16:06 | Procedure Note ---
Pre-Mod Sedation Assessment General Date of Moderate Sedation: September 09, 2016. Vital Signs: Vital Signs Past 12 Hours Date Time Temp Pulse Resp B/P Pulse Ox O2 Delivery O2 Flow Rate FiO2 09/09/16 15:55 88 16 124/66 96 Room Air 09/09/16 15:50 86 16 112/64 96 Room Air 09/09/16 15:45 88 16 124/68 96 Room Air 09/09/16 15:40 91 16 127/72 96 Room Air 09/09/16 15:35 90 16 136/78 96 Room Air 09/09/16 15:35 88 16 126/63 95 Nasal Cannula 4 09/09/16 15:30 91 16 138/63 95 Nasal Cannula 4 09/09/16 15:25 95 16 146/68 96 Nasal Cannula 4 09/09/16 15:20 100 16 140/66 96 Nasal Cannula 4 09/09/16 15:15 92 16 180/74 96 Nasal Cannula 4 09/09/16 15:10 96 16 162/63 98 Nasal Cannula 4 09/09/16 15:05 94 16 148/76 98 Nasal Cannula 4 09/09/16 15:00 94 16 145/78 98 Nasal Cannula 4 09/09/16 10:00 Room Air 09/09/16 07:37 37.1 93 19 118/77 95 Room Air Review Cardiovascular: regular rate, rhythm Airway Class: III Pre-Sedation Airway Assessment Oral Cavity: WNL Able to Visualize Vocal Cords: No Short Thick Neck: Yes Hx of Sleep Apnea: No Smoking Status: Unknown if Ever Smoked Mallampati Classification: Class III ASA Classification: Class II Procedure Planning Contraindications-for Mod Sed: None Yes Notes The planned sedation has been discussed with the patient and consent obtained. I have identified the patient, determined the appropriateness of sedation and have assessed the patient immediately prior to the procedure. All medicine(s) and interventions are by my order.
--- NOTE | 2016-09-09 16:09 | TEE ---
*NOTICE TO RECEIVING [employer]Y This information is strictly Confidential and protected under [place] law. [place] law prohibits you from making any further disclosure of this information unless further disclosure is expressly permitted by the written consent of the person to whom it pertains or is authorized by law. A general authorization for the release of medical or other information is not sufficient for this purpose. Hospital accepts no responsibility if the information is made available to any other person, INCLUDING THE PATIENT. 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 Procedure Details * MARIBELL Probe #1 utilized for procedure. * The study was performed in Cardiopulmonary Department. * Time out was conducted by the physician, nurse, and multi craft maintenance technician with positive identification of patient and procedure. * Informed consent for Transesophageal Echocardiogram was obtained prior to the procedure. * An intravenous line was placed. A topical anesthetic agent was used for oropharangeal anesthesia. A bite block was inserted. * The patient's vital signs, including blood pressure, heart rate, pulse oximetry and cardiac rhythm were monitored throughout the procedure . * Fentanyl 75 mcg was administered for procedural sedation. * Midazolam 4 mg administered for sedation. * The posterior oropharynx was anesthetized using a topical anesthetic spray. A bite guard was inserted. * A multifrequency, multiplane transesopheageal echocardiographic endoscope was inserted and manipulated in the standard fashion to achieve multiplane views. * The usual views were obtained; basal, mid-esophageal, transgastric and aortic views. * The patient tolerated the procedure well without evidence of orophangeal or esophageal trauma. * A 2D transesophageal echocardiogram with spectral and color flow Doppler was performed. Left Ventricle * The left ventricle is grossly normal size. Atria * The left atrial size is normal. Mitral Valve * The mitral valve anatomy is normal. * Significant mitral regurgitation is absent. Tricuspid Valve * The tricuspid valve is not well visualized. * Tricuspid valve could not be adequately visualized due to acoustic shadowing from the aortic valve Aortic Valve * The aortic valve is trileaflet. 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 * There is no significant aortic regurgitation. Pericardium * There is no pericardial effusion.
[2016-09-09] MEDS ORDERED: DAPT500I IV (16:47)
[2016-09-09] MEDS: DOXAZosin MESYLATE TAB 4 MG TAB PO SCH (20:50)
--- NOTE | 2016-09-09 20:59 | Hospitalist Progress Note ---
Hospitalist Progress Note Date of Service September 09, 2016. Subjective Pt evaluation today including: conversation w/ patient, conversation w/ family , physical exam, conversation w/ management consultant (d/w Dr. Acosta and Dr. Curry) Pt denies any problems except some mild pain in right lower abdomen. Afebrile. Did have some dysuria this AM that seems to have resolved. I went back to see lavonne later in the day after MARIBELL completed and discussed results. Constitutional: No fever Respiratory: No shortness of breath Cardiovascular: No chest pain All Other Systems: Reviewed and Negative Objective Vital Signs Date Time Temp Pulse Resp B/P Pulse Ox O2 Delivery O2 Flow Rate FiO2 09/09/16 16:56 37.0 86 18 134/82 95 Room Air 09/09/16 16:00 88 16 110/68 96 Room Air 09/09/16 16:00 Room Air 09/09/16 15:55 88 16 124/66 96 Room Air 09/09/16 15:50 86 16 112/64 96 Room Air 09/09/16 15:45 88 16 124/68 96 Room Air 09/09/16 15:40 91 16 127/72 96 Room Air 09/09/16 15:35 90 16 136/78 96 Room Air 09/09/16 15:35 88 16 126/63 95 Nasal Cannula 4 09/09/16 15:30 91 16 138/63 95 Nasal Cannula 4 09/09/16 15:25 95 16 146/68 96 Nasal Cannula 4 09/09/16 15:20 100 16 140/66 96 Nasal Cannula 4 09/09/16 15:15 92 16 180/74 96 Nasal Cannula 4 09/09/16 15:10 96 16 162/63 98 Nasal Cannula 4 09/09/16 15:05 94 16 148/76 98 Nasal Cannula 4 09/09/16 15:00 94 16 145/78 98 Nasal Cannula 4 09/09/16 10:00 Room Air 09/09/16 07:37 37.1 93 19 118/77 95 Room Air 09/09/16 00:00 Room Air 09/08/16 23:40 37.0 110 20 148/88 95 Room Air Physical Exam General Appearance: WD/WN, no apparent distress Eyes: normal inspection, sclerae normal ENT: hearing grossly normal Neck: trachea midline Respiratory/Chest: lungs clear, normal breath sounds, no respiratory distress, no accessory muscle use Cardiovascular: regular rate, rhythm, no edema, no gallop, no murmur Abdomen: normal bowel sounds, non tender, soft Extremities: non-tender, no pedal edema, no calf tenderness Neurologic/Psychiatric: alert, normal mood/affect, oriented x 3 Skin: normal color, warm/dry, no rash Laboratory Results Last 24 Hours Test 09/09/16 07:42 09/09/16 11:21 09/09/16 16:36 09/09/16 20:00 Bedside Glucose 164 mg/dl 194 mg/dl 114 mg/dl 153 mg/dl Assessment and Plan 71 M with recent urology intervention, here with fevers, found to have sepsis, mssa, and concern for triscuspid valvular vegetation on TTE UTI/Sepsis,/right ureteral stent/MSSA UTI and Bacteremia- ceftriaxone 1 g IV daily begun in the emergency department. Consult urology following with plan to take out stent next week while still on abx. Now with MSSA bacteremia and with possible tricuspid valvular vegetation seen on TTE, --> MARIBELL could not adequately visualize Tricuspid valve however Cardiology reviewed TTE and feels likelihood of endocarditis is low; changed antibiotics to ancef 2 gms q 8 and now ID consulted and with plans to finish 2 week course Daptomycin for bacteremia followed by parveen finch after wards. Repeat BCxs still NGTD. -PICC line consent signed and will order for in the AM to be placed - to see if home infusion covered vs [facility] daily for 10 more days -hopeful for dc to home tomorrow -f/u Urology 1 week for stent removal -f/u ID 1 week -check CPK, CMP, ESR, CRP, CBC in 1 week while on Dapto Acute Renal failure-->epic ambulatory analysts 1.6 on admission, now down to 1.2--> resolved -can restart losartan in the AM HTN-stable -continue doxazosin 4 mg by mouth at bedtime -restart losartan Diabetes mellitus II--control is variable, check HgbA1C -ok to restart metformin 1000 mg by mouth twice a day -continue glipizide and continue ssi Hypothyroidism-- seems clinically stable, -continue levothyroxine sodium 75 g by mouth daily. Peripheral neuropathy-stable gabapentin 300 mg by mouth twice a day. Hypercholesterolemia-- -ok to restart Crestor 10 mg by mouth daily. Depression/anxiety/Insomnia- improved -continue Wellbutrin and alprazolam 0.5 mg Proph-SCDs Dispo-to home tomorrow with either home health or [facility]
[2016-09-09] MEDS: ZOLPIDEM TARTRATE 5 MG TAB PO PRN (22:38)
[2016-09-10] MEDS ORDERED: NURSING DECISION MEDICATION ORDER SCH
[2016-09-10] MEDS ORDERED: COUGH DROP (SUGAR FREE) LOZ 24 LOZ/1 BOX PO PRN (01:30)
[2016-09-10] MEDS: CEFAZOLIN IV 2,000 MG in DEXTROSE 5% 50ML 50 ML IV SCH ×2 (02:06→09:18)
[2016-09-10 06:05] LABS: BASO % 0.1 %; BASO ABS # 0.01 K/uL (0-0.2); COMPLETE YES; EOS % 2.4 %; HEMATOCRIT 35.7 % (42-52); IG% 1.5 %; LYMPH % 18.3 %; LYMPH ABS # 1.51 K/uL (1.2-3.4); MEAN CELL VOLUME 95.7 fL (80-100); MEAN CORPUSCULAR HGB CONC 31.4 g/dl (32-36); MEAN PLATELET VOLUME 9.3 fL (7.4-10.4); MONO % 10.9 %; NEUT % 66.8 %; PLATELET COUNT 329 K/uL (130-400); RED BLOOD COUNT 3.73 M/uL (4.7-6.1); WHITE BLOOD COUNT 8.23 K/uL (4.8-10.8)
[2016-09-10 06:20] LABS: ESTIMATED AVERAGE GLUCOSE 203 mg/dl; HA1C FLAG Normal (Normal)
[2016-09-10] MEDS: LEVOTHYROXINE 75 MCG TAB PO SCH (06:21)
[2016-09-10 06:42] LABS: ALT/SGPT 14 U/L (12-78); AST/SGOT 14 U/L (15-37); BLOOD UREA NITROGEN 17 mg/dl (7-18); BUN/CREATININE RATIO 12.8 (10-20); CALCIUM 8.8 mg/dl (8.5-10.1); CARBON DIOXIDE 31 mmol/L (21-32); CHLORIDE 104 mmol/L (98-107); GLUCOSE 172 mg/dl (70-99); MAGNESIUM 2.2 mg/dl (1.8-2.4); POTASSIUM 4.1 mmol/L (3.5-5.1); SODIUM 141 mmol/L (136-145)
[2016-09-10 06:48] LABS: ALKALINE PHOSPHATASE 29 U/L (45-117); C-REACTIVE PROTEIN 3.44 mg/dl (0-0.29)
[2016-09-10 07:23] VITALS: BP 97/59; PULSE 89; TEMP 37.1; O2SAT 96
[2016-09-10] MEDS ORDERED: ROSUVASTATIN CALCIUM 10 MG TAB PO SCH (08:00)
[2016-09-10] MEDS ORDERED: LOSARTAN POTASSIUM 50 MG TAB PO SCH (08:00)
[2016-09-10] MEDS ORDERED: METFORMIN HCL 500 MG TAB PO SCH (08:00)
[2016-09-10] MEDS ORDERED: ASPIRIN 325 MG ECTAB PO SCH (08:00)
[2016-09-10] MEDS: DOCUSATE SODIUM 100 MG CAP PO SCH (09:19)
[2016-09-10] MEDS: POLYETHYLENE (MIRALAX) 17 GM PACK PO SCH (09:19)
[2016-09-10] MEDS: BuPROPion XL 300 MG TABCR PO SCH (09:19)
[2016-09-10] MEDS: GABAPENTIN 300 MG CAP PO SCH (09:19)
[2016-09-10] MEDS: INSULIN ASPART 100 UNITS/ML 3 ML PEN SC SCH ×2 (09:23→12:45)
--- NOTE | 2016-09-10 09:25 | Infectious Disease Progress Nt ---
Progress Note Date of Service September 10, 2016. Subjective Pt evaluation today including: conversation w/ patient, physical exam, chart review, lab review, review of studies, conversation w/ incident response consultant, review of inpatient medication list No new complaints today. Remains afebrile. Follow-up blood cultures remain no growth. MARIBELL unable to visualize tricuspid valve well. Re-review of TTE questions presence of vegetation. All Other Systems: Reviewed and Negative Medications Current Inpatient Medications Medications (Trade) Dose Ordered Sig/Sherry Route Start Time Stop Time Status Last Admin Dose Admin Acetaminophen (Tylenol Tab) 650 mg Q4H PRN PO 09/05/16 00:45 10/05/16 00:44 09/08/16 05:32 650 MG Ondansetron HCl (Zofran Inj) 4 mg Q6H PRN IV 09/05/16 00:45 10/05/16 00:44 09/05/16 19:52 4 MG Insulin Aspart (novoLOG ASPART) SLIDING SCALE If C... ACHS SC 09/05/16 06:30 10/05/16 06:59 09/09/16 20:53 4 UNITS Glucose (Glucose Chew Tab) 1 tabs UD PRN PO 09/05/16 00:45 10/05/16 00:44 Dextrose (Dextrose 50% 50ML Syringe) 50 ml UD PRN IV 09/05/16 00:45 10/05/16 00:44 Glucagon 1 mg 1 mg UD PRN SQ 09/05/16 00:45 10/05/16 00:44 Acetaminophen (Ofirmev Iv) 100 ml @ 400 mls/hr Q8H PRN IV 09/05/16 00:45 10/05/16 00:44 Glucose (Glucose 40% Gel) UD PRN PO 09/05/16 00:45 10/05/16 00:44 Morphine Sulfate (MoRPHine SULFATE INJ) 2 mg Q2H PRN IV 09/05/16 00:45 09/19/16 00:44 Morphine Sulfate (MoRPHine SULFATE INJ) 4 mg Q2H PRN IV 09/05/16 00:45 09/19/16 00:44 Alprazolam (Xanax Tab) 0.5 mg TID PRN PO 09/05/16 00:45 10/05/16 00:44 09/09/16 08:38 0.5 MG Bupropion HCl (Wellbutrin-Xl Tab) 300 mg BID PO 09/05/16 08:00 10/05/16 08:59 09/09/16 20:02 300 MG Docusate Sodium (coLACE CAP) 100 mg BID PO 09/05/16 08:00 10/05/16 08:59 09/09/16 20:01 100 MG Fluticasone Propionate (Flonase Nasal [place]) 1 sprays DAILY PRN CHUCKY 09/05/16 08:00 10/05/16 07:59 Gabapentin (Neurontin Cap) 300 mg BID PO 09/05/16 08:00 10/05/16 08:59 09/09/16 20:00 300 MG Acetaminophen/ Hydrocodone Bitart ([place] 5/325 Tab) 1 tab Q4 PRN PO 09/05/16 00:45 09/19/16 00:44 Levothyroxine Sodium (Synthroid Tab) 75 mcg DAILYBB PO 09/05/16 06:30 10/05/16 06:29 09/10/16 06:21 75 MCG Nitroglycerin (Nitrostat Tab) 0.4 mg UD SL 09/05/16 00:45 10/05/16 00:44 Zolpidem Tartrate (Ambien Tab) 10 mg HSZ PRN PO 09/05/16 22:00 10/05/16 21:59 09/09/16 22:38 10 MG Polyethylene (Miralax Powder Packet) 17 gm DAILY PO 09/06/16 08:00 10/06/16 07:59 09/08/16 08:17 17 GM Glipizide (Glucotrol Tab) 10 mg BIDM PO 09/06/16 17:00 10/06/16 16:59 09/09/16 08:33 10 MG Doxazosin Mesylate (Cardura Tab) 4 mg HS PO 09/07/16 21:00 10/07/16 20:59 09/09/16 20:50 4 MG Lorazepam (Ativan Tab) 0.5 mg Q6 PRN PO 09/07/16 14:45 10/07/16 14:44 09/09/16 12:13 0.5 MG Lorazepam 0.5 mg 0.5 mg Q4H PRN IV 09/07/16 14:45 10/07/16 14:44 Lorazepam 0.5 mg/ Syringe 1 ml @ 1 mls/min Q4H PRN IV 09/07/16 14:45 10/07/16 14:44 Cefazolin Sodium/ Dextrose (Ancef Iv/D5 50ml) 60 ml @ 100 mls/hr Q8H IV 09/08/16 10:00 10/20/16 09:29 09/10/16 02:06 100 MLS/HR Losartan Potassium (coZAAR TAB) 50 mg DAILY PO 09/10/16 08:00 10/10/16 07:59 Metformin HCl (Glucophage Tab) 1,000 mg BIDM PO 09/10/16 08:00 10/10/16 07:59 Rosuvastatin Calcium (Crestor Tab) 10 mg DAILY PO 09/10/16 08:00 10/10/16 07:59 Aspirin (Ecotrin Tab) 325 mg DAILY PO 09/10/16 08:00 10/10/16 07:59 Menthol (Nice Yeni) 1 yeni PRN PRN PO 09/10/16 01:30 10/10/16 01:29 Objective Vital Signs Date Time Temp Pulse Resp B/P Pulse Ox O2 Delivery O2 Flow Rate FiO2 09/10/16 07:23 37.1 89 18 97/59 96 09/10/16 00:00 Room Air 09/09/16 23:27 37.0 103 18 137/88 96 Room Air 09/09/16 16:56 37.0 86 18 134/82 95 Room Air 09/09/16 16:00 88 16 110/68 96 Room Air 09/09/16 16:00 Room Air 09/09/16 15:55 88 16 124/66 96 Room Air 09/09/16 15:50 86 16 112/64 96 Room Air 09/09/16 15:45 88 16 124/68 96 Room Air 09/09/16 15:40 91 16 127/72 96 Room Air 09/09/16 15:35 90 16 136/78 96 Room Air 09/09/16 15:35 88 16 126/63 95 Nasal Cannula 4 09/09/16 15:30 91 16 138/63 95 Nasal Cannula 4 09/09/16 15:25 95 16 146/68 96 Nasal Cannula 4 09/09/16 15:20 100 16 140/66 96 Nasal Cannula 4 09/09/16 15:15 92 16 180/74 96 Nasal Cannula 4 09/09/16 15:10 96 16 162/63 98 Nasal Cannula 4 09/09/16 15:05 94 16 148/76 98 Nasal Cannula 4 09/09/16 15:00 94 16 145/78 98 Nasal Cannula 4 09/09/16 10:00 Room Air Physical Exam General Appearance: WD/WN, no apparent distress Eyes: normal inspection, sclerae normal ENT: normal ENT inspection, pharynx normal Neck: supple, no adenopathy, trachea midline Respiratory/Chest: chest non-tender, lungs clear, normal breath sounds, no respiratory distress Cardiovascular: regular rate, rhythm, no gallop, no murmur Abdomen: normal bowel sounds, non tender, soft, no organomegaly Extremities: non-tender, no calf tenderness Neurologic/Psychiatric: alert, oriented x 3 Skin: normal color, warm/dry, no rash Lymphatic: no adenopathy Laboratory Results RUN DATE: 09/09/16 [facility] LAB PAGE 1 RUN TIME: 0655 Specimen Inquiry PATIENT: JIMBO QUINTANILLA LOC: [facility] U # : [id number] AGE/SX: 71/M ROOM: 08 REG : 09/05/[address]: Luiz Abdi M : 1945 BED: 1 DIS : STATUS: ADM IN TLOC: SPEC #: [id number] NICHOLAS: 09/07/16 STATUS: RES REQ #: [id number] RECD: 09/07/[address] [facility] [address]: Luiz Abdi M.D. SOURCE: BLOOD ENTR: 09/07/[address] [facility] [address]: Oumar Culp M.D. [facility]: Lux Ying M.D., Christopher T. M.D. ORDERED: BLOOD CULTURE Procedure Result Verified Site BLD CULT Preliminary 09/09/16-654 NO GROWTH TO DATE. Last 24 Hours Test 09/09/16 11:21 09/09/16 16:36 09/09/16 20:00 09/10/16 05:35 Bedside Glucose 194 mg/dl 114 mg/dl 153 mg/dl White Blood Count 8.23 K/uL Red Blood Count 3.73 M/uL Hemoglobin 11.2 g/dL Hematocrit 35.7 % Mean Corpuscular Volume 95.7 fL Mean Corpuscular Hemoglobin 30.0 pg Mean Corpuscular Hemoglobin Concent 31.4 g/dl Platelet Count 329 K/uL Mean Platelet Volume 9.3 fL Neutrophils (%) (Auto) 66.8 % Lymphocytes (%) (Auto) 18.3 % Monocytes (%) (Auto) 10.9 % Eosinophils (%) (Auto) 2.4 % Basophils (%) (Auto) 0.1 % Neutrophils # (Auto) 5.49 K/uL Lymphocytes # (Auto) 1.51 K/uL Monocytes # (Auto) 0.90 K/uL Eosinophils # (Auto) 0.20 K/uL Basophils # (Auto) 0.01 K/uL RDW Standard Deviation 46.1 fL RDW Coefficient of Variation 13.2 % Immature Granulocyte % (Auto) 1.5 % Immature Granulocyte # (Auto) 0.12 K/uL Erythrocyte Sedimentation Rate 70 mm/hr Sodium Level 141 mmol/L Potassium Level 4.1 mmol/L Chloride Level 104 mmol/L Carbon Dioxide Level 31 mmol/L Anion Gap 6.0 mmol/L Blood Urea Nitrogen 17 mg/dl Creatinine 1.30 mg/dl Est Creatinine Clear Calc Drug Dose 54.4 ml/min Estimated GFR () 62.7 Estimated GFR (Non- 54.1 BUN/Creatinine Ratio 12.8 Random Glucose 172 mg/dl Estimated Average Glucose 203 mg/dl Hemoglobin A1c 8.7 % Calcium Level 8.8 mg/dl Magnesium Level 2.2 mg/dl Total Bilirubin 0.2 mg/dl Direct Bilirubin < 0.1 mg/dl Aspartate Amino Transf (AST/SGOT) 14 U/L Alanine Aminotransferase (ALT/SGPT) 14 U/L Alkaline Phosphatase 29 U/L Total Creatine Kinase 53 U/L C-Reactive Protein 3.44 mg/dl Total Protein 7.0 gm/dl Albumin 2.9 gm/dl Test 09/10/16 07:46 Bedside Glucose 163 mg/dl Assessment and Plan 71-year-old male status post ureteral stenting and lithotripsy for obstructive uropathy from stone disease, now with staphylococcal (MSSA) bacteremia. Suspect tricuspid endocarditis unlikely. Would recommend 2 weeks of IV antibiotics followed by 2-4 weeks of oral therapy. For outpatient Rx, Daptomycin 6 mg/kg daily would be easiest for patient. Will need PICC line. Discussed with Dr. Smith. Will follow as outpatient.
[2016-09-10] MEDS ORDERED: BUPRTAB PO (11:57)
[2016-09-10] MEDS ORDERED: DAPTOmycin IV 550 MG in SODIUM CHLORIDE 0.9% 50ML 50 ML IV SCH (12:00)
[2016-09-10] MEDS: ALPRAZOLAM 0.5 MG TAB PO PRN (14:27)
[2016-09-10 14:59] VITALS: Ht 170.2 cm; Wt 90.7 kg
--- NOTE | 2016-09-10 15:15 | Discharge Instructions ---
Discharge Instructions Date of Service September 10, 2016. Admission Reason for Admission: Sepsis, UTI Discharge Discharge Diagnosis / Problem: Sepsis, Bacteremia, UTI Discharge Goals Goal(s): Improve disease control, Diagnostic testing, Therapeutic intervention Activity Recommendations Activity Limitations: resume your previous activity Exercise/Sports Limitations: none Shower/Bathe: no limitations Driving or Machine Use: no limitations . Instructions / Follow-Up Instructions / Follow-Up You were admitted with sepsis, a urinary tract infection, and bacteremia ( bacteria in your blood). There was some suspicion that you may have an infection on your heart valve, but further testing showed that this was of low likelihood. You will need to receive IV antibiotics for a total of 2 weeks ( including time you've already received antibiotics in the hospital), followed by oral antibiotics for 2-4 more weeks after that. You should follow up with Urology to have your ureteral stent removed next week. You should follow up with Infectious Disease, Dr. Anival Curry, in 1 week as well and he will manage your antibiotic treatment. You should have bloodwork drawn at the [facility] in 1 week as well. Please follow up with your primary care doctor for hospital follow up as well as for improved control of your diabetes. Current Hospital Diet Patient's current hospital diet: Diabetes Type 2 Diet Discharge Diet Recommended Diet: Diabetes Type 2 Diet Procedures Procedures Performed: ECHOCARDIOGRAM MARIBELL CT abdomen/pelvis Pending Studies Studies pending at discharge: yes List of pending studies: Final repeat blood culture result-showed no growth to date at time of discharge Laboratory Results Last 24 Hours Test 09/09/16 16:36 09/09/16 20:00 09/10/16 05:35 09/10/16 07:46 Bedside Glucose 114 mg/dl 153 mg/dl 163 mg/dl White Blood Count 8.23 K/uL Red Blood Count 3.73 M/uL Hemoglobin 11.2 g/dL Hematocrit 35.7 % Mean Corpuscular Volume 95.7 fL Mean Corpuscular Hemoglobin 30.0 pg Mean Corpuscular Hemoglobin Concent 31.4 g/dl Platelet Count 329 K/uL Mean Platelet Volume 9.3 fL Neutrophils (%) (Auto) 66.8 % Lymphocytes (%) (Auto) 18.3 % Monocytes (%) (Auto) 10.9 % Eosinophils (%) (Auto) 2.4 % Basophils (%) (Auto) 0.1 % Neutrophils # (Auto) 5.49 K/uL Lymphocytes # (Auto) 1.51 K/uL Monocytes # (Auto) 0.90 K/uL Eosinophils # (Auto) 0.20 K/uL Basophils # (Auto) 0.01 K/uL RDW Standard Deviation 46.1 fL RDW Coefficient of Variation 13.2 % Immature Granulocyte % (Auto) 1.5 % Immature Granulocyte # (Auto) 0.12 K/uL Erythrocyte Sedimentation Rate 70 mm/hr Sodium Level 141 mmol/L Potassium Level 4.1 mmol/L Chloride Level 104 mmol/L Carbon Dioxide Level 31 mmol/L Anion Gap 6.0 mmol/L Blood Urea Nitrogen 17 mg/dl Creatinine 1.30 mg/dl Est Creatinine Clear Calc Drug Dose 54.4 ml/min Estimated GFR () 62.7 Estimated GFR (Non- 54.1 BUN/Creatinine Ratio 12.8 Random Glucose 172 mg/dl Estimated Average Glucose 203 mg/dl Hemoglobin A1c 8.7 % Calcium Level 8.8 mg/dl Magnesium Level 2.2 mg/dl Total Bilirubin 0.2 mg/dl Direct Bilirubin < 0.1 mg/dl Aspartate Amino Transf (AST/SGOT) 14 U/L Alanine Aminotransferase (ALT/SGPT) 14 U/L Alkaline Phosphatase 29 U/L Total Creatine Kinase 53 U/L C-Reactive Protein 3.44 mg/dl Total Protein 7.0 gm/dl Albumin 2.9 gm/dl Test 09/10/16 11:17 Bedside Glucose 206 mg/dl Hemoglobin A1c Test 09/10/16 05:35 Range/Units Estimated Average Glucose 203 mg/dl Hemoglobin A1c 8.7 H 4.5-5.6 % Medical Emergencies . Who to Call and When: Medical Emergencies: If at any time you feel your situation is an emergency, please call 911 immediately. . Non-Emergent Contact Non-Emergency issues call your: Primary Care Provider, Urologist, Specialist ( Infectious Disease) Call Non-Emergent contact if: you have a fever, you have any medication questions . . "Provider Documentation" section prepared by Jessica Rodriguez. . VTE Core Measure Inpt VTE Proph given/why not?: SCD's
[2016-09-10 15:18] VITALS: BP 97/59; PULSE 89; TEMP 37.1; O2SAT 96
--- NOTE | 2016-09-30 15:14 | Discharge Summary ---
Discharge Summary Date of Service Sep 30, 2016. Discharge Summary Admission Date: September 05, 2016 at 00:42 Discharge Date: September 10, 2016 Discharge Disposition: Home Principal Diagnosis: Sepsis, MSSA Bacteremia and UTI Problems/Secondary Diagnoses: Ureterolithiasis and recent urological intervention Acute Renal failure HTN Diabetes mellitus II Hypothyroidism Peripheral neuropathy Hypercholesterolemia Depression/anxiety/Insomnia Procedures: CT SCAN OF THE ABDOMEN AND PELVIS WITHOUT CONTRAST CLINICAL HISTORY: Sepsis. Right nephroureteral stent. COMPARISON STUDY: 517 TECHNIQUE: CT scan of the abdomen and pelvis was performed from the lung bases to the proximal femurs. Images are reviewed in the axial, sagittal, and coronal planes. IV contrast was not administered for this examination. CT DOSE: 845.19 mGy.cm FINDINGS: Lower chest: There are coronary artery calcifications present. Liver: The unenhanced liver is normal in size, contour, and attenuation. There is no intrahepatic biliary ductal dilatation. Gallbladder: Unremarkable. Spleen: Normal in size and attenuation. Pancreas: Unremarkable. Adrenal glands: Unremarkable. Kidneys: There is a nonobstructing 4 mm lower pole left renal calculus. Multiple right renal calculi are visualized measuring up to 2.5 mm in diameter. There is a right-sided nephroureteral stent present. No calculi are visualized along the course of the stent. There are no bladder calculi. There is no significant hydronephrosis. Bowel: There are no transition zones indicate bowel obstruction. There is colonic diverticulosis. There are no acute peridiverticular inflammatory changes. There is no evidence of acute appendicitis. Peritoneum: There is no intraperitoneal free air or abdominal ascites. Vasculature: The abdominal aorta is normal in course and caliber. Adenopathy: None. Pelvic viscera: The bladder, and pelvic viscera are unremarkable. Skeletal structures: Postsurgical changes are present within the lumbar spine. IMPRESSION: 1. Bilateral nephrolithiasis 2. Interval placement of a right-sided nephroureteral stent 3. No evidence of bowel obstruction. No evidence of free air 4. Diverticulosis. No evidence of acute diverticulitis. 5. No evidence of acute appendicitis. TTE: * 1. Normal LV size. Mild concentric LVH. * 2. Normal overall LV systolic function. LVEF 60-65%. Posterior wall akinesis , moderate inferior hypokinesis. * 3. Grade I diastolic dysfunction. * 4. Normal RV size and function. * 5. Possible vegetation involving tricuspid valve. Consider MARIBELL if clinical suspicion warrants. No other significant valvular pathology. * 6. Normal estimated RA and PA pressures. * 7. No other prior studies for comparison. 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 Consultations: Cardiology Infectious Disease Urology Medication Reconciliation New Medications: Bupropion Hcl (Wellbutrin Xl) 150 Mg Tab 1 TAB PO BID for 30 Days, TAB Daptomycin (Daptomycin) 500 Mg Inj 540 MG IV DAILY for 10 Days, #10 EA Continued Medications: Albuterol Sulfate (Proair Respiclick) 108 Mcg/Act Aer 2 PUFF INH Q4 PRN for Shortness of Breath Alprazolam (Xanax) 0.5 Mg Tab 0.5 MG PO TID PRN for prn, TAB Aspirin (Aspirin) 325 Mg Tab 325 MG PO DAILY Doxazosin Mesylate (Doxazosin Mesylate) 4 Mg Tab 4 MG PO DAILY, TAB 5 Refills Ergocalciferol (Vitamin D) 50,000 Interunit Cap 74106 INTER.UNIT PO WK TAKE THIS MED EVERY FRIDAY Fluticasone Propionate (Nasal) (Flonase Allergy Relief) 50 Mcg/Act Spr 1 SPRAY CHUCKY PRN Gabapentin (Neurontin) 300 Mg Cap 300 MG PO BID, CAP Glipizide (Glipizide Er) 10 Mg Tab 10 MG PO BID, TAB 1 Refill Hydrocodone/Acetaminophen 5MG/325MG ([place] 5MG/325MG) Tab 1-2 TABLETS PO Q6 PRN for Pain, TAB PRN PAIN Levothyroxine Sodium (Levothyroxine Sodium) 75 Mcg Tab 75 MCG PO DAILY, TAB 5 Refills Losartan Potassium (Cozaar) 50 Mg Tab 50 MG PO DAILY, TAB Metformin Hcl (Glucophage) 1,000 Mg Tab 1000 MG PO BID, TAB Multivitamin (Multivitamin) Tab 1 TAB PO DAILY, TAB Nitroglycerin (Nitrostat) 0.4 Mg Tab 1 TAB SL UD, TAB Ondasetron Odt (Zofran Odt) 4 Mg Tab 4 MG SL Q6H PRN for Nausea or Vomiting, #6 TAB Rosuvastatin Calcium (Crestor) 10 Mg Tab 10 MG PO DAILY, TAB Zolpidem Tartrate (Ambien) 5 Mg Tab 10 MG PO HS, TAB Discontinued Medications: Bupropion (Wellbutrin-Xl) 300 Mg Tabcr 300 MG PO BID, TAB Discharge Exam Feeling well. Reviewed results of his tests and condition Physical Exam General Appearance: WD/WN, no apparent distress Eyes: normal inspection, sclerae normal ENT: hearing grossly normal Neck: trachea midline Respiratory/Chest: lungs clear, normal breath sounds, no respiratory distress, no accessory muscle use Cardiovascular: regular rate, rhythm, no edema, no gallop, no murmur Abdomen: normal bowel sounds, non tender, soft Extremities: non-tender, no pedal edema, no calf tenderness Neurologic/Psychiatric: alert, normal mood/affect, oriented x 3 Skin: normal color, warm/dry, no rash Review of Systems: Constitutional: No fever Eyes: No problem reported ENT: No problem reported Respiratory: No problem reported Cardiovascular: No problem reported Abdomen: No problem reported Musculoskeletal: No problem reported Genitourinary - Male: No problem reported Neurologic: No problem reported Psychiatric: + anxiety Endocrine: No problem reported Hematologic / Lymphatic: No problem reported Integumentary: No problem reported Hospital Course 71 M with recent urology intervention, here with fevers, found to have sepsis, MSSA bacteremia and UTI, and initial concern for triscuspid valvular vegetation on TTE UTI/Sepsis,/right ureteral stent/MSSA UTI and Bacteremia- ceftriaxone 1 g IV daily begun in the emergency department. Consult urology following with plan to take out stent next week while still on abx. Now with MSSA bacteremia and with possible tricuspid valvular vegetation seen on TTE, --> MARIBELL could not adequately visualize Tricuspid valve however Cardiology reviewed TTE and feels likelihood of endocarditis is low; changed antibiotics to ancef 2 gms q 8 and now ID consulted and with plans to finish 2 week course Daptomycin for bacteremia followed by po keflex afterwards. Repeat BCxs still NGTD. 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 Discussed improved control of glucose -ok to restart metformin 1000 mg by mouth twice a day -continue glipizide and continue ssi -f/u with PCP Hypothyroidism-- seems clinically stable, -continue levothyroxine sodium 75 g by mouth daily. Peripheral neuropathy-stable gabapentin 300 mg by mouth twice a day. Hypercholesterolemia-- -ok to restart Crestor 10 mg by mouth daily. Depression/anxiety/Insomnia- improved -continue Wellbutrin and alprazolam 0.5 mg Proph-SCDs Dispo-to home Total Time Spent: Greater than 30 minutes This includes examination of the patient, discharge planning, medication reconciliation, and communication with other providers. Discharge Instructions Please refer to the electronic Patient Visit Report (Discharge Instructions) for additional information. Follow-Up PCP within 1 week Urol in 1 week ID in 1 week [facility] daily for antibiotics beginning tomorrow Additional Copies To Oumar Culp M.D.
--- NOTE | 2016-10-04 05:57 | EDITING REQUIRED CODING QUERY ---
CODING QUERY To promote full compliance with coding requirements relating to patient care, provider participation is requested in all cases of remote coders uncertainty. Please assist us with the question(s) below: Coding Question(s): Please clarify below, in your clinical opinion, regarding the initial concern for tricuspid valvular vegetation - endocarditis. ( x ) Tricuspid valvular vegetation - endocarditis was possible and treated initially ( ) Tricuspid valvular vegetation - endocarditis is not possible and is ruled-out Physician's Response(s): Thank you Mary Niño Principal Diagnosis: "_that condition established after study, to be chiefly responsible for occasioning the admission of the patient to the hospital for care." Co-Existing Principal Diagnosis: "_when two or more diagnoses equally meet the criteria for principal diagnosis as determined by the circumstances of admission, diagnostic work up, and/or therapy provided, and the Alphabetic Index, Tabular List, or another coding guideline does not provide sequencing direction, any one of the diagnoses may be sequenced first." "When the physician has documented what appears to be a current diagnosis in the body of the record, but has not included the diagnosis in the final diagnostic statement, the physician should be asked whether the diagnosis should be added." ([facility] 2 QTR90. p3-4)
--- NOTE | 2016-10-04 06:02 | EDITING REQUIRED CODING QUERY ---
CODING QUERY To promote full compliance with coding requirements relating to patient care, provider participation is requested in all cases of pipe or steam fitter furnace installer uncertainty. Please assist us with the question(s) below: Coding Question(s): Please clarify below, in your clinical opinion, regarding the UTI. ( ) The UTI is a complication of the recent ureteral stent procedure ( x ) The UTI is not a complication of the recent ureteral stent procedure Physician's Response(s): Thank you Mary Niño Principal Diagnosis: "_that condition established after study, to be chiefly responsible for occasioning the admission of the patient to the hospital for care." Co-Existing Principal Diagnosis: "_when two or more diagnoses equally meet the criteria for principal diagnosis as determined by the circumstances of admission, diagnostic work up, and/or therapy provided, and the Alphabetic Index, Tabular List, or another coding guideline does not provide sequencing direction, any one of the diagnoses may be sequenced first." "When the physician has documented what appears to be a current diagnosis in the body of the record, but has not included the diagnosis in the final diagnostic statement, the physician should be asked whether the diagnosis should be added." ([facility] 2 QTR90. p3-4)
== END 2016-09-10 17:01 | disposition home or self-care (01) | DRG 871 ==
LOC: ENRESERVDT → ENRESERVTM → C.EDB 20:49 → C.4E 09-05 00:42
PROVIDERS: ADMIT Hospitalist; ATTEND Family Medicine
PROC: 02HV33Z Insertion of Infusion Device into Superior Vena Cava, Percutaneous Approach (ICD-10-PCS; principal; 2016-09-10)
DX: A41.01 Sepsis due to Methicillin susceptible Staphylococcus aureus (principal); I33.0 Acute and subacute infective endocarditis; N39.0 Urinary tract infection, site not specified; N17.9 Acute kidney failure, unspecified; B95.61 Methicillin susceptible Staphylococcus aureus infection as the cause of diseases classified elsewhere; N28.9 Disorder of kidney and ureter, unspecified; I11.9 Hypertensive heart disease without heart failure; I25.10 Atherosclerotic heart disease of native coronary artery without angina pectoris; E03.9 Hypothyroidism, unspecified; E11.21 Type 2 diabetes mellitus with diabetic nephropathy; E78.00 Pure hypercholesterolemia, unspecified; F32.9 Major depressive disorder, single episode, unspecified; G47.00 Insomnia, unspecified; F41.9 Anxiety disorder, unspecified; Z79.899 Other long term (current) drug therapy; Z79.82 Long term (current) use of aspirin; Z79.84 Long term (current) use of oral hypoglycemic drugs; Z87.442 Personal history of urinary calculi; Z98.61 Coronary angioplasty status; Z98.1 Arthrodesis status

== ENCOUNTER → 2016-09-13 | Outpatient (CLI) | payer OTHER ==
[~2016-09-13] MED LIST changes: +BUPRTAB PO; -BUPRTAB51 PO; -CIPR-255 PO; +DAPT500I IV; -DOCU-94 PO
--- NOTE | 2016-09-13 09:53 | DIAGNOSTIC IMAGING REPORT ---
KUB HISTORY: Nephrolithiasis. COMPARISON: [facility]UB 08/22/2016. FINDINGS: The bowel gas pattern is unremarkable. There are no dilated loops of small bowel to suggest an obstruction. There is a right ureteral stent. This is likely due to position. A 3 mm stone is seen within the lower pole the right kidney and a 4 mm stone is seen within the lower pole the left kidney. No definite ureteral calculi. Lower lumbar spinal fusion hardware is again noted. No pneumoperitoneum or pneumatosis. IMPRESSION: Stable bilateral nephrolithiasis. A right ureteral stent appears to be in good position. No ureteral calculi identified. Electronically signed by: Ignacio Najera M.D. 09/13/2016 9:52 AM Dictated Date/Time: 09/13/2016 9:50 AM
== END | disposition home or self-care (01) ==
LOC: C.RAD 09:17
PROVIDERS: ATTEND Nurse Practitioner Family
DX: N20.0 Calculus of kidney (principal); R78.81 Bacteremia; A41.01 Sepsis due to Methicillin susceptible Staphylococcus aureus

== ENCOUNTER → 2017-01-14 | Outpatient (CLI) | payer OTHER ==
[~2017-01-14] MED LIST changes: -BUPRTAB PO
--- NOTE | 2017-01-14 14:57 | DIAGNOSTIC IMAGING REPORT ---
KUB HISTORY: History of left-sided renal calculi. Follow-up exam N20.0 [id number] COMPARISON: Abdominal radiograph 09/13/2016. FINDINGS: The bowel gas pattern is non-obstructive. No pneumoperitoneum. There is no organomegaly. Bilateral nephrolithiasis again noted with largest calculus on the left measuring 5 mm. The previously noted right ureteral stent has been removed. No definite ureteral calculi. There is convex right curvature of the lumbar spine with severe multilevel intervertebral disc space narrowing. Fusion hardware is seen within the lower lumbar spine. IMPRESSION: 1. Bilateral nephrolithiasis without ureteral calculi identified. 2. Nonobstructive bowel gas pattern. Electronically signed by: Gulshan Cristina M.D. 01/14/2017 2:55 PM Dictated Date/Time: 01/14/2017 2:53 PM
== END | disposition home or self-care (01) ==
LOC: C.RAD 14:16
PROVIDERS: ATTEND Nurse Practitioner Family
DX: N20.0 Calculus of kidney (principal)

== ENCOUNTER → 2017-07-14 | Outpatient (CLI) | payer OTHER ==
--- NOTE | 2017-07-14 16:36 | DIAGNOSTIC IMAGING REPORT ---
KUB CLINICAL HISTORY: NEPHROLITHIASIS LEFT FLANK PAIN COMPARISON STUDY: 01/14/2017 FINDINGS: There is a stable 3 mm calcification projected over the lower pole of the left kidney. An equivocal second faint 3 mm calcification projects over the medial aspect of the left kidney. This is visualized only one of 2 projections and therefore may represent overlying enteric contents. There are postsurgical changes present within the lumbar spine. There are advanced degenerative changes present. There is a probable right renal calculus versus overlying rib calcification. There is no pathologic bowel dilatation. IMPRESSION: Suspected bilateral nephrolithiasis, similar to the preceding study. A faint 3 mm opacity projected of the medial aspect the left kidney is visualized only one of 2 projections, and therefore likely represents overlying enteric contents Electronically signed by: Jairo Kenny M.D. 07/14/2017 4:35 PM Dictated Date/Time: 07/14/2017 4:32 PM
== END | disposition home or self-care (01) ==
LOC: C.RAD 16:07
PROVIDERS: ATTEND Nurse Practitioner Adult Health
DX: N20.0 Calculus of kidney (principal)